=== PATIENT | male | born 2000 | race Caucasian/White ===

== ENCOUNTER 2021-07-11 19:19 | Emergency (ER) | payer MEDICAID ==
[~2021-07-11] VITALS: Ht 177.8 cm; Wt 39.8 kg
[2021-07-11 21:31] VITALS: BP 108/75
[2021-07-11 22:06] LABS: BASOPHILS # (AUTO) 0.1 X10'3 (0-0.2); BASOPHILS % (AUTO) 0.4 % (0-1); EOSINOPHILS # (AUTO) 0.1 X10'3 (0-0.9); EOSINOPHILS % (AUTO) 1.1 % (0-6); HEMATOCRIT 33.2 % (42.0-52.0); HEMOGLOBIN 10.6 g/dl (14.0-17.9); LYMPHOCYTES # (AUTO) 0.8 X10'3 (1.1-4.8); LYMPHOCYTES % (AUTO) 6.1 % (21-51); MEAN CORPUSCULAR HEMOGLOBIN 23.9 PG (27.0-31.0); MEAN CORPUSCULAR HGB CONC 31.8 g/dL (33.0-36.5); MEAN CORPUSCULAR VOLUME 75.3 FL (78-98); MEAN PLATELET VOLUME 8.2 FL (7.4-10.4); MONOCYTES # (AUTO) 0.6 X10'3 (0-0.9); NEUTROPHILS % (AUTO) 87.4 % (42-75); PLATELET COUNT 588 X10'3 (140-440); RED BLOOD COUNT 4.41 X10'6 (4.70-6.10); RED CELL DISTRIBUTION WIDTH 15.4 % (11.5-14.5); WHITE BLOOD COUNT 12.6 X10'3 (4.5-11.0)
[2021-07-11 22:21] LABS: ALANINE AMINOTRANSFERASE 31 U/L (12-78); ALBUMIN 3.4 G/DL (3.4-5.0); ALBUMIN/GLOBULIN RATIO 0.7 (1.1-1.5); ALKALINE PHOSPHATASE 123 IU/L (46-116); ANION GAP 10 (8-16); ASPARTATE AMINO TRANSFERASE 20 U/L (10-37); BILIRUBIN,TOTAL 0.4 MG/DL (0.1-1.0); BLOOD UREA NITROGEN 8 MG/DL (7-18); BUN/CREATININE RATIO 8.9 (5.4-32.0); CALCIUM 9.4 MG/DL (8.5-10.1); CHLORIDE 102 MMOL/L (99-107); GLUCOSE 86 MG/DL (70-104); POTASSIUM 3.8 MMOL/L (3.5-5.1); SODIUM 139 MMOL/L (135-145); TOTAL CARBON DIOXIDE 26.8 MMOL/L (24-32); TOTAL PROTEIN 8.4 G/DL (6.4-8.2); eGFR > 90 ML/MIN
== END 2021-07-11 23:51 | disposition home or self-care (01) ==
LOC: ER 19:22
DX: D64.9 Anemia, unspecified (principal); Z20.822 Contact with and (suspected) exposure to COVID-19; R91.8 Other nonspecific abnormal finding of lung field; R06.02 Shortness of breath; R05 Cough; R11.10 Vomiting, unspecified; Z79.899 Other long term (current) drug therapy
CPT/HCPCS: 36415; 71045; 71250; 80053; 85025; 87635; 93005; 99285; C9803

== ENCOUNTER 2022-04-09 06:13 | Day surgery (SDC) | payer MEDICAID ==
[~2022-04-09] VITALS: Ht 177.8 cm; Wt 40.4 kg
[2022-04-09 06:20] VITALS: BP 105/68
[2022-04-09] MEDS ORDERED: LIDOcaine Viscous 15ml cup ONE (06:24)
[2022-04-09] MEDS ORDERED: diphenhydrAMINE 50 mg/ml inj ONE (06:24)
[2022-04-09] MEDS ORDERED: MIDAZolam 1 MG/ML 5ML VIAL ONE (06:24)
[2022-04-09] MEDS ORDERED: fentaNYL/PF 50MCG/1 ML 2ML syringe ONE (06:24)
[2022-04-09] MEDS ORDERED: DULO60CA65 PO (07:10)
[2022-04-09] MEDS ORDERED: FAMO20TA8 PO (07:11)
[2022-04-09] MEDS ORDERED: FERR-39 PO (07:12)
[2022-04-09] MEDS ORDERED: GUAI5SYR5 (07:13)
[2022-04-09] MEDS ORDERED: HEPA100D36 SQ (07:16)
[2022-04-09] MEDS ORDERED: ISON300T20 PO (07:17)
[2022-04-09] MEDS ORDERED: MEGE40TA5 PO (07:18)
[2022-04-09] MEDS ORDERED: METO50TA16 (07:19)
[2022-04-09] MEDS ORDERED: MULT-1085 PO (07:20)
[2022-04-09] MEDS ORDERED: MOME13HF INH (07:20)
[2022-04-09] MEDS ORDERED: PYRI-3 PO (07:21)
[2022-04-09] MEDS ORDERED: RIFA150C7 (07:22)
[2022-04-09] MEDS ORDERED: SERT-433 PO (07:26)
[2022-04-09] MEDS ORDERED: SODI100035 PO (07:27)
[2022-04-09] MEDS ORDERED: ACET-1074 PO (07:28)
[2022-04-09] MEDS ORDERED: ALBU0.63 INH (07:30)
[2022-04-09] MEDS ORDERED: GUAI120L55 PO (07:32)
[2022-04-09] MEDS ORDERED: BENZ1LOZ74 PO (07:33)
[2022-04-09] MEDS ORDERED: DOCU1POW (07:35)
[2022-04-09] MEDS ORDERED: LORA-269 PO (07:36)
[2022-04-09] MEDS ORDERED: ONDA4TAB12 PO (07:37)
[2022-04-09] MEDS ORDERED: POLY17PO59 PO (07:38)
[2022-04-09] MEDS ORDERED: ZOLP5TAB2 PO (07:39)
[2022-04-09] MEDS ORDERED: SIME80TA15 PO (07:39)
[2022-04-09 08:20] VITALS: BP 112/81
[2022-04-09 08:30] VITALS: BP 117/77
[2022-04-09 08:40] VITALS: BP 105/83
[2022-04-09 08:50] VITALS: BP 124/47
== END 2022-04-09 09:15 ==
LOC: GI LAB 06:13
PROVIDERS: ATTEND Internal Medicine Gastroenterology
DX: R13.10 Dysphagia, unspecified (principal); J45.909 Unspecified asthma, uncomplicated; Z86.11 Personal history of tuberculosis; Z79.899 Other long term (current) drug therapy
CPT/HCPCS: 43246; 99152; 99153; B4087; J1200; J2250; J3010; J7030; Z7512; A4620

== ENCOUNTER 2023-06-28 02:42 | Emergency (ER) | payer MEDICAID ==
[~2023-06-28] VITALS: Ht 177.8 cm; Wt 47.7 kg
[~2023-06-28 02:42] MED LIST: ACET-1074 PO; ALBU0.63 INH; BENZ1LOZ74 PO; DOCU1POW; DULO60CA65 PO; FAMO20TA8 PO; FERR-39 PO; GUAI120L55 PO; GUAI5SYR5; HEPA100D36 SQ; ISON300T20 PO; LORA-269 PO; MEGE40TA5 PO; METO50TA16; MOME13HF11 INH; MULT-1085 PO; ONDA4TAB12 PO; POLY17PO59 PO; PYRI-3 PO; RIFA150C7; SERT-433 PO; SIME80TA15 PO; SODI100035 PO; ZOLP5TAB2 PO
[2023-06-28 02:56] VITALS: BP 120/93; PULSE 77; RESP 18; TEMP 98.2; O2SAT 98
[2023-06-28 03:25] LABS: BILIRUBIN,URINE NEGATIVE (Neg); CLARITY,URINE CLEAR (Clear); GLUCOSE, URINE NEGATIVE (Neg); KETONES,URINE NEGATIVE (Neg); LEUKOCYTE ESTERASE ,URINE NEGATIVE (Neg); NITRITES, URINE NEGATIVE (Neg); OCCULT BLOOD,URINE TRACE-INTACT (Neg); PROTEIN,URINE NEGATIVE (Neg); UROBILINOGEN,URINE 0.2 E.U/dL (0.2-1.0)
[2023-06-28 03:51] LABS: UA COLLECTION TYPE VOIDED
[2023-06-28 03:54] LABS: COLOR,URINE STRAW (Yellow)
[2023-06-28 03:55] LABS: SQUAMOUS EPITHELIAL CELL,UR NONE SEEN /LPF (FEW)
[2023-06-28 03:56] LABS: BACTERIA,URINE FEW /HPF (Neg); RBC,URINE NONE SEEN /HPF (0-2); WBC,URINE NONE SEEN /HPF (0-4)
[2023-06-28] MEDS ORDERED: azithromycin 250mg tablet PO ONE (05:05)
[2023-06-28] MEDS ORDERED: CefTRIAXone 500MG IM Kit w/LIDOcaine IM ONE (05:05)
[2023-06-28] MEDS ORDERED: CLOT30CR24 TOP (05:07)
[2023-06-30 10:02] LABS: CHLAMYDIA TRACHOMATIS, NAA Negative (Negative)
== END 2023-06-28 05:31 | disposition home or self-care (01) ==
LOC: ER 02:43
DX: N47.2 Paraphimosis (principal); Z79.899 Other long term (current) drug therapy; Z79.1 Long term (current) use of non-steroidal anti-inflammatories (NSAID)
CPT/HCPCS: 36415; 81001; 87491; 87591; 96372; 99283; J0696

== ENCOUNTER 2025-03-09 22:04 | Inpatient (IN) | payer MEDICAID ==
[~2025-03-09] VITALS: Ht 167.6 cm; Wt 50.9 kg
[~2025-03-09 22:04] MED LIST changes: +CLOT30CR24 TOP; -ISON300T20 PO; +ONDA-243 PO; -ONDA4TAB12 PO; -RIFA150C7; +[UNRECOGNIZED DRUG - CODE]; +[UNRECOGNIZED DRUG - CODE] PO
--- NOTE | 2025-03-09 22:19 | ELECTROCARDIOGRAPH REPORT ---
[facility] Test Date: 2025-03-09 Test Time: 22:15:01 Pat Name: YNOI GUTIERREZ Department: EMERGENCY ROOM Room: Gender: M Deep Tissue Massage Therapist: : 2000 Requested By: SAL SALGUERO Order Number: [id number] Reading MD: Measurements Intervals [place] Rate: 94 P: 66 FL: 136 QRS: 89 QRSD: 96 T: 8 QT: 315 QTc: 394 Interpretive Statements Sinus rhythm Biatrial enlargement Probable right ventricular hypertrophy ST elevation, consider lateral injury Artifact in lead(s) V5,V6 and baseline wander in lead(s) V5,V6 Please click the below link to view image of tracing.
--- NOTE | 2025-03-09 22:47 | Physician Documentation ---
History of Present Illness ~ Chief Complaint: Shortness of Breath Stated Complaint: SOB Time Seen by MD: 22:39 HPI 24-year-old male history of tuberculosis presenting for shortness of breath and cough over the last several days Medication Reconciliation Allergies: Coded Allergies: No Known Allergies (Unverified , 03/09/25) Miscellaneous Medications Home Med List (No Home Medications), (Reported) Discontinued Medications Acetaminophen (Acetaminophen), 2 TAB PO Q4HR PRN for pain or fever, (Reported) Discontinued Reason: patient no longer taking Albuterol Sulfate (Albuterol Sulfate), 90 MCG INH Q4H, (Reported) Discontinued Reason: patient no longer taking Benzocaine/Menthol (Cepacol Sore Throat Lozenge), 1 TAB PO Q4H, (Reported) Discontinued Reason: patient no longer taking Clotrimazole (Clotrimazole), 1 APPLIC TOP Q12H Discontinued Reason: patient no longer taking Docusate Sodium (Docusate Sodium), 283 .SEE ORDER RECTALLY, (Reported) Discontinued Reason: patient no longer taking Duloxetine HCl (Duloxetine HCl), 1 CAP PO HS, (Reported) Discontinued Reason: patient no longer taking Famotidine (Famotidine), 1 TABLET PO DAILY, (Reported) Discontinued Reason: patient no longer taking Ferrous Sulfate (Ferrous Sulfate), 1 TAB PO DAILY, (Reported) Discontinued Reason: patient no longer taking Guaifenesin/Codeine Phosphate (Codeine-Guaifen 10-100 mg/5 ml), 20-200 ML PO Q6H PRN for cough and congestion, (Reported) Discontinued Reason: patient no longer taking Guaifenesin/Dextromethorphan (Guaifenesin Dm Syrup 5ML Cup), 5 ML .SEE ORDER Q6H, (Reported) Discontinued Reason: patient no longer taking Heparin Sodium,Porcine/Pf (Heparin 1,000 Unit/10 (100/ml)), 5,000 UNIT SQ Q8H, (Reported) Discontinued Reason: patient no longer taking Isoniazid (ISONIAZID tablet), 225 MG PO DAILY, (Reported) Discontinued Reason: patient no longer taking Lorazepam (Ativan), 0.5 MG PO Q4H, (Reported) Discontinued Reason: patient no longer taking Megestrol Acetate (Megace), 800 MG PO DAILY, (Reported) Discontinued Reason: patient no longer taking Metoprolol Tartrate (Metoprolol Tartrate), BID, (Reported) Discontinued Reason: patient no longer taking Mometasone/Formoterol (Dulera 200 Mcg/5 Mcg Inhaler), 2 PUFFS INH Q12H, (Reported) Discontinued Reason: patient no longer taking Multivitamin (Multi Vitamin Daily), 1 TAB PO DAILY, (Reported) Discontinued Reason: patient no longer taking ONDANSETRON ODT 4mg tablet (Ondansetron Odt), 1 TABLET PO Q6H, (Reported) Discontinued Reason: patient no longer taking Polyethylene Glycol 3350 (Polyethylene Glycol 3350), 1 PKT PO Q8, (Reported) Discontinued Reason: patient no longer taking Pyridoxine Hcl (Vitamin B-6), 25 MG PO DAILY, (Reported) Discontinued Reason: patient no longer taking Rifampin (RIFAMPIN capsule), 450 MG .SEE ORDER DAILY, (Reported) Discontinued Reason: patient no longer taking Sertraline HCl (Sertraline HCl), 1 TAB PO DAILY, (Reported) Discontinued Reason: patient no longer taking Simethicone (Simethicone), 1 TAB PO Q6, (Reported) Discontinued Reason: patient no longer taking Sodium Chloride (Sodium Chloride), 1 TAB PO Q12H, (Reported) Discontinued Reason: patient no longer taking Zolpidem Tartrate (Ambien), 1 TAB PO HSPRN, (Reported) Discontinued Reason: patient no longer taking Past Medical History Past Medical History: No Pertinent History Past Surgical History: no surgical history Alcohol Use: None Drug Use: none Review of Systems Constitutional: Reports: diaphoresis, fever Cardiovascular: Denies: chest pain Physical Exam Vital Signs: Temperature: 101.0, Source: Temporal, Heart Rate: 99, Respiratory Rate: 30, BP: 122/74, Pulse Oximetry: 97, Weight: 50.900 Physical Exam Ill-appearing cachectic diaphoretic Respiratory moderate distress right upper lobe crackles Lower extremity no edema Neuro awake alert oriented Sepsis Screening Reassessment Date: March 09, 2025 Reassessment Time: 23:55 Vitals Signs Review Improved Cardiology Exam: normal peripheral pulses, regular rate, rhythm Extremities: normal inspection, normal capillary refill Skin Color: Normal Progress Progress Note Discussed case with Dr. Ball infectious Disease who knows this patient well and feels he was appropriately treated for tuberculosis. He thinks this is likely a bacterial pneumonia and recommends treatment for bacterial pneumonia and no need for TB precautions he will be available for further consultation Results/Orders Results/Orders Orders - SAL SALGUERO MD Chest,Single View (03/09/25 ) Culture Blood (03/09/25 23:54) Covid19 Binax Poc Result Entry (03/10/25 00:54) Cult Sputum + Gram Stain (03/10/25 00:54) Afb Culture & Smear (03/10/25 01:05) Page Hospitalist (03/10/25 01:28) Fill Out Med Reconciliation (03/10/25 01:28) Completed Orders - SAL SALGUERO MD Electrocardiogram (03/09/25 ) Chest,Single View (03/09/25 ) Cbc/Diff (03/09/25 23:53) BMP (03/09/25 23:53) Hs Troponin I W Calculations (03/09/25 23:53) LA (03/09/25 23:54) Piperacillin/Tazo 4.5gm/100ml (Zosyn 4.5 (03/10/25 08:00) Vancomycin/Ns 1 Gm Add-Lomira (Vancomyc (03/10/25 01:25) Normal Saline 1000ml (Sodium Chloride 10 (03/10/25 01:25) Ringers Solution, Lacted (Lactated Ringe (03/10/25 01:30) Piperacillin/Tazo 4.5gm/100ml (Zosyn 4.5 (03/10/25 01:39) Piperacillin/Tazo 4.5gm/100ml (Zosyn 4.5 (03/10/25 02:01) Acetaminophen 325mg Tablet (Tylenol Tabl (03/10/25 02:25) C-Reactive Protein (03/09/25 22:35) Ferritin (03/09/25 22:35) Hgb A1c (03/09/25 22:35) Vital Signs 03/09/25 03/09/25 03/09/25 03/09/25 22:05 22:07 22:20 22:30 Temp 101.0 101.3 Pulse 99 32 43 Resp 30 19 26 B/P (MAP) 122/74 75/45 (55) 110/53 (72) Pulse Ox 98 97 92 94 O2 Delivery Room Air* O2 Flow Rate 0 0 FiO2 21 03/09/25 03/09/25 03/10/25 03/10/25 23:00 23:30 00:00 00:30 Pulse 106 110 130 100 Resp B/P (MAP) 97/62 (74) 116/70 (85) 135/78 (97) 122/79 (93) Pulse Ox 97 97 94 96 O2 Flow Rate 2.0 2.0 2.0 2.0 03/10/25 03/10/25 03/10/25 03/10/25 01:00 01:30 02:00 02:30 Temp 101.2 Pulse 118 112 109 108 Resp B/P (MAP) 116/73 (87) 135/80 (98) 107/73 (84) 116/71 (86) Pulse Ox 96 97 100 100 O2 Flow Rate 2.0 2.0 2.0 2.0 03/10/25 03/10/25 03/10/25 03/10/25 03:00 03:30 04:10 06:00 Temp 98.2 97.9 Pulse 98 90 82 70 Resp 23 22 B/P (MAP) 125/69 (87) 114/61 (78) 112/68 (83) 101/61 (74) Pulse Ox 99 99 99 98 O2 Flow Rate 2.0 2.0 2.0 2.0 03/10/25 03/10/25 03/10/25 03/10/25 07:00 07:30 08:00 08:30 Pulse 73 62 79 78 Resp 24 17 B/P (MAP) 98/66 (77) 99/65 (76) 107/77 (87) 89/50 (63) Pulse Ox 97 94 97 96 O2 Flow Rate 2.0 2.0 2.0 2.0 03/10/25 03/10/25 03/10/25 09:00 09:02 09:11 Temp 98.5 Pulse 72 67 70 Resp 18 20 19 B/P (MAP) 89/55 (66) Pulse Ox 95 98 O2 Delivery Room Air* Room Air O2 Flow Rate 2.0 0 0.0 FiO2 21 Laboratory Tests Test 03/09/25 22:35 03/10/25 01:14 03/10/25 01:25 03/10/25 05:30 White Blood Count 10.4 Red Blood Count 5.26 Hemoglobin 13.6 L Hematocrit 41.3 L Mean Corpuscular Volume 78.5 Mean Corpuscular Hemoglobin 25.9 L Mean Corpuscular Hemoglobin Concent 32.9 L Red Cell Distribution Width 13.8 Platelet Count 326 Mean Platelet Volume 9.5 Neutrophils (%) (Auto) 78.5 H Lymphocytes (%) (Auto) 8.8 L Monocytes (%) (Auto) 7.2 Eosinophils (%) (Auto) 5.5 Basophils (%) (Auto) 0 Neutrophils # (Auto) 8.2 H Lymphocytes # (Auto) 0.9 L Monocytes # (Auto) 0.7 Eosinophils # (Auto) 0.6 Basophils # (Auto) 0.0 CBC Comment Sodium Level 140 Potassium Level 3.6 Chloride Level 103 Carbon Dioxide Level 27.0 Anion Gap 10 Blood Urea Nitrogen 7 Creatinine 0.90 Estimated GFR/1.73 m2 > 90 BUN/Creatinine Ratio 7.8 L Glucose Level 88 Hemoglobin A1c 4.9 Calcium Level 9.3 Iron Level 19 L Total Iron Binding Capacity 242 L Percent Iron Saturation 8 L Ferritin 108 Troponin I High Sensitivity 5 C-Reactive Protein 2.27 H Albumin 4.1 Procalcitonin < 0.05 Chemistry Comments SARS-CoV-2 Antigen (Rapid) Negative Lactic Acid Level 1.7 Urine Specimen Description Urinal Urine Color Straw Urine Clarity Clear Urine pH 6.0 Urine Specific [place] 1.010 Urine Protein Negative Urine Glucose (UA) Negative Urine Ketones Trace H Urine Occult Blood Negative Urine Nitrite Negative Urine Bilirubin Negative Urine Urobilinogen 0.2 Urine Leukocyte Esterase Negative Urine Culture Indicated Not ind Volume Urine Centrifuged 10 ml Urine Comment Blood Gas Specimen Type Arterial Blood Gas Puncture Site Rr O2 Saturation 99.0 H Arterial Blood pH (Temp corrected) 7.429 Arterial Blood pCO2 (Temp correct) 37.6 Arterial Blood pO2 (Temp corrected) 125.4 H Arterial Blood PO2/FiO2 Ratio 4.67 Arterial Blood HCO3 24.6 Arterial Blood Base Excess 0.1 Arterial Blood Oxyhemoglobin 98.3 H Arterial Blood Carboxyhemoglobin 0.7 Arterial Blood Methemoglobin 0.0 Arterial Blood Deoxyhemoglobin 1.0 Erwin Test Modified Blood Gas Hemoglobin 12.6 L Blood Gas Temperature 36.1 Blood Gas Liter Flow 2 FiO2 28.0 Blood Gas Critical Value Called To Estuardo duran Test 03/10/25 07:12 Erythrocyte Sedimentation Rate 14 Potassium Level 3.8 Magnesium Level 1.9 Microbiology Date/Time Source Procedure Growth Status 03/10/25 01:25 Blood Arm Right Blood Culture - Preliminary NO GROWTH AFTER 1 DAY Resulted Medical Decision Making Additional info obtained from: old records Additional Infomation Pneumonia, tuberculosis, COPD pulmonary embolism Departure Disposition: ADMITTED INPATIENT Admitted to Inpatient Unit: to hospitalist Impression: Primary Impression: Respiratory distress Additional Impressions: Pneumonia Qualified Codes: J18.9 - Pneumonia, unspecified organism Septic shock Referrals: NO PRIMARY CARE PROVIDER (PCP) Critical Care Note Total Time (mins): 35 Critical Care Note The very real possibility of a deterioration of this patient's condition required the highest level of my preparedness for sudden, emergent intervention. I provided critical care services, which included medication orders, frequent reevaluations of the patient's condition and response to treatment, ordering and reviewing test results, and discussing the case with various consultants. Excludes time spent performing separately billable procedures. The critical care time associated with the care of the patient was 35 minutes in the management of severe sepsis/septic shock requiring resuscitation Signature Scribe Signature: tip Attestation: SAL De La O MD March 09, 2025 22:47
[2025-03-09] MEDS ORDERED: NO HOME MEDS (23:59)
[2025-03-10] VITALS (8 sets, daily range): BP systolic 94–102; BP diastolic 53–60; PULSE 67–81; RESP 14–20; TEMP 97.7–98.9; O2SAT 95–99
[2025-03-10 00:02] LABS: BASOPHILS % (AUTO) 0 % (0-1); EOSINOPHILS # (AUTO) 0.6 X10'3 (0-0.9); EOSINOPHILS % (AUTO) 5.5 % (0-6); HEMATOCRIT 41.3 % (42.0-52.0); HEMOGLOBIN 13.6 g/dl (14.0-17.9); LYMPHOCYTES # (AUTO) 0.9 X10'3 (1.1-4.8); LYMPHOCYTES % (AUTO) 8.8 % (21-51); MEAN CORPUSCULAR HEMOGLOBIN 25.9 PG (27.0-31.0); MEAN CORPUSCULAR HGB CONC 32.9 g/dL (33.0-36.5); MEAN CORPUSCULAR VOLUME 78.5 FL (78-98); MEAN PLATELET VOLUME 9.5 FL (7.4-10.4); MONOCYTES # (AUTO) 0.7 X10'3 (0-0.9); MONOCYTES % (AUTO) 7.2 % (2-12); NEUTROPHILS # (AUTO) 8.2 X10'3 (1.8-7.7); NEUTROPHILS % (AUTO) 78.5 % (42-75); PLATELET COUNT 326 X10'3 (140-440); RED BLOOD COUNT 5.26 X10'6 (4.70-6.10); RED CELL DISTRIBUTION WIDTH 13.8 % (11.5-14.5); WHITE BLOOD COUNT 10.4 X10'3 (4.5-11.0)
[2025-03-10 00:05] LABS: ALBUMIN 4.1 G/DL (3.4-5.0); ANION GAP 10 (8-16); BLOOD UREA NITROGEN 7 MG/DL (7-18); BUN/CREATININE RATIO 7.8 (10.0-20.0); CALCIUM 9.3 MG/DL (8.5-10.1); CHLORIDE 103 MMOL/L (99-107); GLUCOSE 88 MG/DL (70-104); POTASSIUM 3.6 MMOL/L (3.5-5.1); SODIUM 140 MMOL/L (135-145); eCRCL 90 ML/MIN; eGFR > 90 ML/MIN
[2025-03-10] MEDS: piperacillin/tazo 4.5gm/100ml 100 ML IV ONE ×2 (01:38→02:42)
[2025-03-10] MEDS: piperacillin/tazo 4.5gm/100ml 100 ML IV SCH (01:39)
--- NOTE | 2025-03-10 01:48 | RADIOLOGY REPORT ---
Clinical History sob Comparison None Technique: A single AP/PA chest radiograph was provided for review. Without Contrast MATT YONI, [id number] FINDINGS:/IMPRESSION: Normal cardiac silhouette. Extensive parenchymal hazy densities in the upper lung zones bilaterally, consistent with multifocal infiltrates. Confluent area of opacification in the right upper lobe with small lucencies may represent an abscess . This report was electronically signed by Moustapha Huerta MD on 03/10/2025 1:45:01 AM.
[2025-03-10] MEDS: vancomycin/NS 1 GM ADD-VANTAGE 250 ML IV ONE (01:49)
[2025-03-10] MEDS: normal saline 1000ml 1,000 ML IV ONE (01:49)
[2025-03-10] MEDS: ringers solution, lacted 1,000 ML IV ONE (01:49)
[2025-03-10] MEDS: acetaminophen 325mg tablet PO ONE (02:42)
[2025-03-10] MEDS ORDERED: mag hydrox/Alum hydrox/simeth 30ml oral suspension PO PRN (04:50)
[2025-03-10] MEDS ORDERED: magnesium sulf-water 4G/100mL 100 ML IV PRN (04:50)
[2025-03-10] MEDS ORDERED: potassium Cl 20 mEq SR tablet PO PRN ×2 (04:50)
[2025-03-10] MEDS ORDERED: magnesium hydroxide 30ml (MOM) UD suspension PO PRN (04:50)
[2025-03-10] MEDS ORDERED: magnesium Cl slow-release 64mg tablet PO PRN (04:50)
[2025-03-10] MEDS ORDERED: ondansetron/PF 4mg/2ml inj IV PRN (04:50)
[2025-03-10] MEDS ORDERED: acetaminophen 325mg tablet PO PRN (04:50)
[2025-03-10] MEDS ORDERED: magnesium sulf-water 2g/50mL 50 ML IV PRN (04:50)
[2025-03-10] MEDS ORDERED: potassium Cl 40MEQ/1/2NS 520ml 520 ML IV PRN (04:50)
--- NOTE | 2025-03-10 05:00 | HISTORY AND PHYSICAL-Residence ---
History & Physical Providers to CC Resident Creating Document: ALEXSANDER MELO, RES ~ History of Present Illness Primary Medical Doctor: none Reason for Admit\Complaint: Cough and shortness of breath. History of Present Illness 24-year-old male patient with past medical history of tuberculosis two years ago came to the hospital with chief complaint of worsening cough and shortness of breaths. The patient reports that approximately 24 hours ago his cough has been getting worse, he describes his cough as a dry cough. Associated to his cough he endorses pleuritic chest pain with the episodes of his cough. The patient also mentioned some nausea and two episodes of vomit food type secondary to his cough spell. The patient also endorses episodes of sweating, subjective fever, reason for which the patient decided to come to the hospital. The patient currently denies palpitations, abdominal pain, intestinal or urinary symptoms. Allergies: Coded Allergies: No Known Allergies (Unverified , 03/09/25) Home Medications Home Medications Active Reported No Home Medications (Home Med List) Each Past Medical History Past Medical History Tuberculosis two years ago, he completed his treatment. Past Surgical History Surgical History Comment S/P feeding tube when he had tuberculosis. Past Social History Smoking: Non-Smoker Alcohol Use: None Drug Use: None Lives with: Other (Roommates) Lives In: Other Occupation: unemployed ROS All Other Systems: Reviewed and Negative Exam Vitals: Vital Signs Date Time Temp Pulse Resp B/P (MAP) Pulse Ox O2 Delivery O2 Flow Rate FiO2 03/10/25 04:10 98.2 82 22 112/68 (83) 99 2.0 03/09/25 22:07 Room Air* 21 Physical exam: General: Diaphoretic, Cachectic, well alert, well oriented, not confused, mildly agitated, well cooperated during the physical. HEENT: Conjunctive are pink, sclerae clear, no icterus, pupil is equal in both sides, reactive to light, no ear discharge, no pharyngeal erythema or an edema. Neck: Supple, no JVD, no lymphadenopathy and thyromegaly. Chest: Equal air entry on both lungs, presence of crackles in the right upper lung. Cardiovascular: S1-S2 regular sinus rhythm and, regular rate, no gallops, no rubs, no murmurs Abdomen: No visible peristalsis, Bowel sounds present on auscultation, soft, nontender, no guarding, no rigidity, presence of scar from previous PEG tube in the level of the left side of his abdomen. Extremities: No obvious deformities, no pitting edema bilaterally, capillary refill intact, peripheral pulsations are intact on both sides Central Nervous System: No focal neurological deficits, no motor or sensory weakness in all 4 extremities, could move all 4 extremities, 2+ deep tendon reflexes, negative Babinski. Musculoskeletal: No joint swelling, deformities, inflammations, and no scoliosis and back tenderness Skin: Warm and dry. Diagnostic Data Last Recorded Lab Results: 03/09/25 2235 03/10/25 0712 Advance Care Planning Advanced Care plannin - 30 Minutes (I spent a total of 17 minutes on reviewing various resuscitative measures/ACP with the patient at the time of admission. The patient has decided on a full code status.) Additional Plan Assessment and plan: 24-year-old male patient came to the hospital with chief complaint of exacerbating cough and shortness of breath. Shortness of breath: Sepsis likely secondary to right upper lobe pneumonia: Sepsis criteria: Temperature 101.2, pulse 112, respiratory rate 28, presence of source of infection: The patient came to the hospital with chief complaint of cough and shortness of breaths. The patient completed treatment for tuberculosis two years ago. COVID-19: Negative. Chest x-ray: Normal cardiac silhouette. Extensive parenchymal hazy densities in the upper lung zones bilaterally, consistent with multifocal infiltrates. Confluent area of opacification in the right upper lobe with small lucencies may represent an abscess. Dr. Ball was consulted who knows this patient well and feels that the patient was appropriately treated for tuberculosis. He thinks like disease a bacterial pneumonia recommends treated for bacterial pneumonia no need for TB precautions. Follow-up blood cultures and MRSA. Follow-up CT scan of the chest. Follow-up sputum culture. Vancomycin pharmacy to dose. Zosyn IV t.i.d.. Culturelle [id number] mmu b.i.d. Duo nebs q.2h p.r.n. DuoNeb q.4h scheduled. NS at 50 mL/hour. Normocytic normochromic anemia: Hemoglobin 13.6, hematocrit 31.3, MCV 78.5. Follow-up iron studies. Code status: Full code DVT prophylaxis: SCDs Analgesia/sedation: None Line/tube: PIV GI prophylaxis: Protonix Nutrition: Regular rate PT: Ordered Prognosis: Guarded Disposition: The patient will be admitted to PCU. Alexsander Wilcox Internal Medicine Resident [facility] Addendum I personally reviewed the chart, labs and imaging and reviewed the patient with the team. I agree with the assessment and plan as documented by the resident. Patient was seen through remote audio-visual assessment through HIPAA compliance setup. Date of Service: March 10, 2025 Billing Provider: KANE SILVERIO MD, FRANCO LUIS, [facility] March 10, 2025 05:00 KANE SILVERIO MD March 10, 2025 08:00
[2025-03-10] MEDS ORDERED: ipratropium/albuterol 3ml nebule NEB PRN (05:10)
[2025-03-10] MEDS: lactobacillus rhamnosus 10,000 MMU CELLS/CAPSULE PO SCH (05:26)
[2025-03-10] MEDS: normal saline 1000ml 1,000 ML IV SCH (05:27)
[2025-03-10 05:34] LABS: % IRON SATURATION 8 % (11-46); IRON 19 UG/DL (53-167); TOTAL IRON BINDING CAPACITY 242 UG/DL (259-388)
[2025-03-10 05:35] LABS: ABG BASE EXCESS 0.1 mmol/L (-2.0-3.0); ABG HCO3 24.6 mmol/L (21.0-28.0); ABG PCO2 (T) 37.6 mmHg (35.0-48.0); ABG PH (T) 7.429 (7.350-7.450); ABG PO2 (T) 125.4 mmHg (83.0-108.0); ALLEN'S TEST Modified; FCOHb 0.7 % (0.5-1.5); FLOW 2 L/min; FO2Hb 98.3 % (94.0-98.0); PATIENT TEMPERATURE 36.1; TOTAL HEMOGLOBIN 12.6 G/dl (13.5-17.5)
[2025-03-10 05:39] LABS: HEMOGLOBIN A1C 4.9 % (4.5-6.2)
[2025-03-10] MEDS: methylPREDNISolone sod succ 125mg/2ml vial IV ONE (05:40)
[2025-03-10 05:45] LABS: BILIRUBIN,URINE NEGATIVE (Neg); CLARITY,URINE CLEAR (Clear); COLOR,URINE STRAW (Yellow); GLUCOSE, URINE NEGATIVE (Neg); KETONES,URINE TRACE mg/dl (Neg); LEUKOCYTE ESTERASE ,URINE NEGATIVE (Neg); NITRITES, URINE NEGATIVE (Neg); OCCULT BLOOD,URINE NEGATIVE (Neg); PROTEIN,URINE NEGATIVE (Neg); UROBILINOGEN,URINE 0.2 E.U/dL (0.2-1.0)
[2025-03-10 05:48] LABS: C-REACTIVE PROTEIN 2.27 MG/DL (0.0-0.5); FERRITIN 108 NG/ML (26-388)
[2025-03-10 05:50] LABS: UA COLLECTION TYPE URINAL
--- NOTE | 2025-03-10 07:07 | RADIOLOGY REPORT ---
EXAM: CT Chest Without Intravenous Contrast CLINICAL INDICATION: rulobe pneumonia TECHNIQUE: Axial computed tomography images of the chest without intravenous contrast. This CT exam was performed using one or more of the following dose reduction techniques: automated exposure cont rol, adjustment of the mA and/or kV according to patient size, and/or use of iterative reconstruction technique. CONTRAST: COMPARISON: CT CHEST on DOS: 07/11/21 FINDINGS: ARTIFACTS: Motion artifact. LUNGS AND PLEURAL SPACES: Lung emphysema/COPD with scattered areas of consolidation, predominantly in the upper lobes could be multifocal pneumonia. Underlying nodule can not be excluded. Repeat CT i n 6 months is recommended. No significant effusion. HEART: Unremarkable. No cardiomegaly. No significant pericardial effusion. No significant coon ry artery calcifications. BONES/JOINTS: Unremarkable. No acute fracture. No dislocation. SOFT TISSUES: Unremarkable. VASCULATURE: Unremarkable. No thoracic aortic aneurysm. LYMPH NODES: Unremarkable. No enlarged lymph nodes. OTHER FINDINGS: . IMPRESSION: Lung emphysema/COPD with scattered areas of consolidation, predominantly in the upper lobes could be multifocal pneumonia. Underlying nodule can not be excluded. Repeat CT in 6 months is recommended.
[2025-03-10 07:37] LABS: MAGNESIUM 1.9 MG/DL (1.5-2.4); POTASSIUM 3.8 MMOL/L (3.5-5.1)
[2025-03-10] MEDS: docusate sod 100mg capsule PO SCH (07:56)
[2025-03-10] MEDS: K and/or MAG REPLACEMENT MC SCH (08:00)
[2025-03-10] MEDS: pantoprazole 40mg Tablet.DR PO SCH (08:00)
[2025-03-10] MEDS: ipratropium/albuterol 3ml nebule NEB SCH (09:02)
[2025-03-10] MEDS: piperacillin/tazo 3.375gm/50ml 50 ML IV SCH (11:44)
--- NOTE | 2025-03-10 11:48 | PROGRESS NOTE ---
Progress Note Dictate Providers to CC ~ Subjective Subjective: Estuardo is a 24-year-old male who is very well known to me from past treatment of pulmonary tuberculosis. He had extensive cavitary disease when I met him. He required a prolonged hospitalization at [facility] followed by a prolonged rehab at [facility]. He was appropriately treated for one year. He was last seen by me in December 2022 when therapy for TB ended. He was supposed to continue another six months of rifampin, ethambutol and azithromycin for MAC. He states that he has been stable over the past two years. He has had trouble maintaining weight, and he hangs right above 100 lbs. He states that he developed a cough with some chest discomfort about a day or two prior to presenting to the hospital. He denies any prolonged symptoms. Objective Objective: Pleasant thin young male who actually looks stable Lungs are dominantly clear to auscultation bilaterally with some bronchial breath sounds at right upper lung field Heart regular rate and rhythm Abdomen soft and nontender Extremities no edema Lab Results: 03/09/25 2235 03/10/25 0712 Radiology comments: CT reviewed. He does have extensive changes bilaterally with scarring, cavitation and bronchiectasis. He does have some consolidative changes of the right upper lobe. Problem\Assessment\Plan Additional Plan 1. 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 Pulmonary tuberculosis with severe cavitary disease that was treated with 12 months of therapy that completed December 2022 3. Pulmonary MAC of unclear significance that was treated with at least 12 months of therapy 4. Possible bacterial infection with involvement of right upper lobe 5. Malnutrition - this was a significant problem when he was being treated for tuberculosis, and he appears to be holding steady Check sputum culture Sputum for AFB is reasonable to look for nontuberculous mycobacteria (I am not worried about TB) He does not need isolation Agree with vancomycin and Zosyn for now Oral intake encouraged LUIS E HUITRON MD March 10, 2025 11:48
[2025-03-10] MEDS: vancomycin/NS 1 GM ADD-VANTAGE 250 ML IV SCH (15:22)
[2025-03-10] MEDS ORDERED: methylPREDNISolone sod succ 125mg/2ml vial IV SCH (20:00)
[2025-03-11] VITALS (14 sets, daily range): BP systolic 98–110; BP diastolic 56–65; PULSE 60–85; RESP 16–20; TEMP 97.6–98.7; O2SAT 95–99
[2025-03-11 05:59] LABS: BASOPHILS % (AUTO) 0.5 % (0-1); EOSINOPHILS # (AUTO) 0.8 X10'3 (0-0.9); EOSINOPHILS % (AUTO) 11.4 % (0-6); HEMATOCRIT 35.6 % (42.0-52.0); HEMOGLOBIN 11.6 g/dl (14.0-17.9); LYMPHOCYTES % (AUTO) 13.5 % (21-51); MEAN CORPUSCULAR HEMOGLOBIN 25.7 PG (27.0-31.0); MEAN CORPUSCULAR HGB CONC 32.6 g/dL (33.0-36.5); MEAN CORPUSCULAR VOLUME 78.9 FL (78-98); MEAN PLATELET VOLUME 8.4 FL (7.4-10.4); MONOCYTES # (AUTO) 0.6 X10'3 (0-0.9); MONOCYTES % (AUTO) 8.7 % (2-12); NEUTROPHILS # (AUTO) 4.8 X10'3 (1.8-7.7); NEUTROPHILS % (AUTO) 65.9 % (42-75); PLATELET COUNT 249 X10'3 (140-440); RED BLOOD COUNT 4.51 X10'6 (4.70-6.10); WHITE BLOOD COUNT 7.2 X10'3 (4.5-11.0)
[2025-03-11 06:23] LABS: ALANINE AMINOTRANSFERASE 14 U/L (12-78); ALBUMIN 3.1 G/DL (3.4-5.0); ALBUMIN/GLOBULIN RATIO 0.9 (1.1-1.5); ALKALINE PHOSPHATASE 105 IU/L (46-116); ANION GAP 9 (8-16); ASPARTATE AMINO TRANSFERASE 12 U/L (10-37); BILIRUBIN,TOTAL 0.4 MG/DL (0.1-1.0); BLOOD UREA NITROGEN 7 MG/DL (7-18); BUN/CREATININE RATIO 8.6 (10.0-20.0); CALCIUM 8.2 MG/DL (8.5-10.1); CHLORIDE 108 MMOL/L (99-107); CHOL/HDL RATIO 2.9 (0.00-4.99); CHOLESTEROL 87 MG/DL (0-200); CREATININE 0.81 MG/DL (0.60-1.10); GLUCOSE 90 MG/DL (70-104); HDL CHOLESTEROL 30 MG/DL (35-60); LDL CHOLESTEROL 51 MG/DL (50-100); POTASSIUM 4.1 MMOL/L (3.5-5.1); SODIUM 144 MMOL/L (135-145); TOTAL CARBON DIOXIDE 26.7 MMOL/L (24-32); TOTAL PROTEIN 6.5 G/DL (6.4-8.2); TRIGLYCERIDES 26 MG/DL (20-135); eCRCL 100 ML/MIN; eGFR > 90 ML/MIN
--- NOTE | 2025-03-11 11:26 | PROGRESS NOTE- Residence ---
Progress Note - Resident Providers to CC Resident Creating Document: ALVIN VENEGAS CC: ONIEL MCRAE MD ~ Antibiotic Timeout Antibiotic Ordered?: Yes Subjective Patient was seen at bedside today. He reports be doing better, denies shortness of breath, cough, fevers, chills or any other subjective symptoms. Objective Vital Signs Date Time Temp Pulse Resp B/P (MAP) Pulse Ox O2 Delivery O2 Flow Rate FiO2 03/11/25 11:05 97.6 79 16 98/65 (76) 97 Room Air 03/11/25 07:40 0.0 03/11/25 07:34 21 Result Diagram: 03/11/2553003/11/25530 General: Cachectic, slightly anxious, awake, alert oriented to place, time, and person HEENT: Some pallor present, no icterus, moist mucous membranes Neck: No masses and tenderness Resp: Unlabored. Lungs clear to auscultation bilaterally. Heart: Regular Rate and rhythm, normal S1 and S2 without murmur, rub or gallop Abdomen: Soft and non tender no organomegaly, no guarding and rigidity, bowel sounds present Neuro: No weakness in the upper and lower limb muscles, power of the muscles 5/5 bilateral upper and lower muscles, knee reflex present bilaterally. Cranial nerves intact Extremities: No cyanosis,clubbing or edema Skin: Warm and Dry. No lesions Assessment Assessment 24-year-old male patient came to the hospital with chief complaint of exacerbating cough and shortness of breath. Admitted for evaluation and management of community acquired pneumonia in the setting of history of pulmonary MAC Plan Plan Shortness of breath, improved Sepsis 2/2 community acquired pneumonia, bacterial History of pulmonary MAC History of pulmonary tuberculosis The patient came to the hospital with chief complaint of cough and shortness of breaths The patient completed treatment for tuberculosis two years ago COVID-19: Negative. Chest x-ray: Normal cardiac silhouette. Extensive parenchymal hazy densities in the upper lung zones bilaterally, consistent with multifocal infiltrates. Confluent area of opacification in the right upper lobe with small lucencies may represent an abscess. Dr. Ball was consulted who knows this patient well and feels that the patient was appropriately treated for tuberculosis. He thinks like disease a bacterial pneumonia recommends treated for bacterial pneumonia no need for TB precautions. Blood cultures are negative Sputum culture shows Gram-positive cocci in pairs. Pending AFB CT chest shows Lung emphysema/COPD with scattered areas of consolidation, predominantly in the upper lobes could be multifocal pneumonia. Underlying nodule can not be excluded. Continue vancomycin and Zosyn, day 2 Culturelle [id number] mmu b.i.d. Duo nebs q.2h p.r.n. DuoNeb q.4h scheduled. IV fluids DC'd Continue recommendations per Dr. Ball Normocytic normochromic anemia likely secondary to anemia of chronic disease Hemoglobin is stable Iron studies consistent with anemia of chronic disease Continue monitoring H&H Moderate protein-calorie malnutrition BMI 18.1 Nutrition consult ordered Start Ensure TID Code status: Full code DVT prophylaxis: SCDs Analgesia/sedation: None Line/tube: PIV GI prophylaxis: Protonix Nutrition: Regular diet PT: Ordered Prognosis: Guarded Disposition: Continue care in surgical unit. Continue medical management. Continue recommendations per ID Alvin Kim MD Internal Medicine Resident PGY-1 Date of Service: March 11, 2025 Billing Provider: ONIEL MCRAE MD Common Visit Codes: [id number] INP/OBS CARE(HIGH) ALVIN VENEGAS March 11, 2025 11:26 ONIEL MCRAE MD March 22, 2025 14:41
[2025-03-11] MEDS: VANCOMYCIN LEVEL IV ONE (13:30)
[2025-03-11] MEDS: VANCOmycin 1250MG/NS 250ml Bag 250 ML IV SCH (15:58)
[2025-03-11] MEDS ORDERED: lactose-reduced food (Ensure Enlive) - 237ml bottle PO SCH (17:30)
[2025-03-11] MEDS: lactose-reduced food (Ensure Enlive) - 237ml bottle PO SCH (20:52)
[2025-03-12] VITALS (14 sets, daily range): BP systolic 84–119; BP diastolic 51–70; PULSE 59–103; RESP 16–18; TEMP 97.8–98.7; O2SAT 97–99
[2025-03-12 06:11] LABS: BASOPHILS % (AUTO) 0.5 % (0-1); EOSINOPHILS # (AUTO) 0.9 X10'3 (0-0.9); EOSINOPHILS % (AUTO) 12.7 % (0-6); HEMATOCRIT 37.8 % (42.0-52.0); HEMOGLOBIN 12.2 g/dl (14.0-17.9); LYMPHOCYTES % (AUTO) 14.4 % (21-51); MEAN CORPUSCULAR HEMOGLOBIN 25.7 PG (27.0-31.0); MEAN CORPUSCULAR HGB CONC 32.3 g/dL (33.0-36.5); MEAN CORPUSCULAR VOLUME 79.4 FL (78-98); MEAN PLATELET VOLUME 8.6 FL (7.4-10.4); MONOCYTES # (AUTO) 0.5 X10'3 (0-0.9); MONOCYTES % (AUTO) 7.8 % (2-12); NEUTROPHILS # (AUTO) 4.5 X10'3 (1.8-7.7); NEUTROPHILS % (AUTO) 64.6 % (42-75); PLATELET COUNT 304 X10'3 (140-440); RED BLOOD COUNT 4.76 X10'6 (4.70-6.10); RED CELL DISTRIBUTION WIDTH 14.2 % (11.5-14.5)
[2025-03-12 06:25] LABS: ALANINE AMINOTRANSFERASE 17 U/L (12-78); ALBUMIN 3.4 G/DL (3.4-5.0); ALBUMIN/GLOBULIN RATIO 0.9 (1.1-1.5); ALKALINE PHOSPHATASE 100 IU/L (46-116); ANION GAP 9 (8-16); ASPARTATE AMINO TRANSFERASE 15 U/L (10-37); BILIRUBIN,TOTAL 0.4 MG/DL (0.1-1.0); BLOOD UREA NITROGEN 8 MG/DL (7-18); BUN/CREATININE RATIO 10.3 (10.0-20.0); CALCIUM 8.6 MG/DL (8.5-10.1); CHLORIDE 105 MMOL/L (99-107); CREATININE 0.78 MG/DL (0.60-1.10); GLUCOSE 85 MG/DL (70-104); MAGNESIUM 2.2 MG/DL (1.5-2.4); POTASSIUM 3.6 MMOL/L (3.5-5.1); SODIUM 143 MMOL/L (135-145); TOTAL CARBON DIOXIDE 28.6 MMOL/L (24-32); TOTAL PROTEIN 7.2 G/DL (6.4-8.2); eCRCL 104 ML/MIN; eGFR > 90 ML/MIN
--- NOTE | 2025-03-12 10:43 | PROGRESS NOTE ---
Progress Note Dictate Providers to CC ~ Subjective Subjective: He states that he is feeling a little bit better. He still has a cough. He also states that he has been living with friends over the past year. Objective Objective: Pleasant thin young male who looks stable Lungs are dominantly clear to auscultation bilaterally with some bronchial breath sounds at right upper lung field Heart regular rate and rhythm Abdomen soft and nontender Extremities no edema Lab Results: 03/12/2552403/12/25524 Lab comments: Sputum culture pending Problem\Assessment\Plan Additional Plan 1. 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 Pulmonary tuberculosis with severe cavitary disease that was treated with 12 months of therapy that completed December 2022 3. Pulmonary MAC of unclear significance that was treated with at least 12 months of therapy 4. Possible bacterial infection with involvement of right upper lobe 5. Malnutrition - this was a significant problem when he was being treated for tuberculosis, and he appears to be holding steady Continue vancomycin and Zosyn for now Follow-up sputum culture Sputum for AFB is reasonable to look for nontuberculous mycobacteria (I am not worried about TB) He does not need isolation Oral intake encouraged LUIS E HUITRON MD March 12, 2025 10:43
--- NOTE | 2025-03-12 15:06 | PROGRESS NOTE- Residence ---
Progress Note - Resident Providers to CC Resident Creating Document: ALVIN VENEGAS CC: ONIEL MCRAE MD ~ Antibiotic Timeout Antibiotic Ordered?: Yes Subjective Patient was seen at bedside today. He states he is doing better, still has some cough but improving. He has been able to get up and use the bathroom. He denies fevers, chills, shortness ot breath or any other subjective symptoms Objective Vital Signs Date Time Temp Pulse Resp B/P (MAP) Pulse Ox O2 Delivery O2 Flow Rate FiO2 03/12/25 11:57 75 16 Room Air 0.0 03/12/25 11:50 97 21 03/12/25 07:30 103/61 (75) 03/12/25 06:30 97.8 Result Diagram: 03/12/2552403/12/25524 General: Cachectic, slightly anxious, awake, alert oriented to place, time, and person HEENT: Some pallor present, no icterus, moist mucous membranes Neck: No masses and tenderness Resp: Unlabored. Lungs clear to auscultation bilaterally. Heart: Regular Rate and rhythm, normal S1 and S2 without murmur, rub or gallop Abdomen: Soft and non tender no organomegaly, no guarding and rigidity, bowel sounds present Neuro: No weakness in the upper and lower limb muscles, power of the muscles 5/5 bilateral upper and lower muscles, knee reflex present bilaterally. Cranial nerves intact Extremities: Significant muscle wasting. No cyanosis,clubbing or edema Skin: Warm and Dry. No lesions Assessment Assessment 24-year-old male patient came to the hospital with chief complaint of exacerbating cough and shortness of breath. Admitted for evaluation and management of community acquired pneumonia in the setting of history of pulmonary Tuberculosis and MAC Plan Plan Shortness of breath, improved Sepsis 2/2 community acquired pneumonia, bacterial History of pulmonary MAC History of pulmonary tuberculosis The patient came to the hospital with chief complaint of cough and shortness of breaths The patient completed treatment for tuberculosis two years ago COVID-19: Negative. Chest x-ray: Normal cardiac silhouette. Extensive parenchymal hazy densities in the upper lung zones bilaterally, consistent with multifocal infiltrates. Confluent area of opacification in the right upper lobe with small lucencies may represent an abscess. Dr. Ball was consulted who knows this patient well and feels that the patient was appropriately treated for tuberculosis. He thinks like disease a bacterial pneumonia recommends treated for bacterial pneumonia no need for TB precautions. Blood cultures are negative Sputum culture shows Gram-positive cocci in pairs. Pending AFB CT chest shows Lung emphysema/COPD with scattered areas of consolidation, predominantly in the upper lobes could be multifocal pneumonia. Underlying nodule can not be excluded. Continue vancomycin and Zosyn, day 3 Culturelle [id number] mmu b.i.d. Duo nebs q.2h p.r.n. DuoNeb q.4h scheduled. IV fluids DC'd Continue recommendations per Dr. Ball Normocytic normochromic anemia likely secondary to anemia of chronic disease Hemoglobin is stable Iron studies consistent with anemia of chronic disease Continue monitoring H&H Moderate protein-calorie malnutrition BMI 18.1 Nutrition consult ordered Start Ensure TID Code status: Full code DVT prophylaxis: SCDs Analgesia/sedation: None Line/tube: PIV GI prophylaxis: Protonix Nutrition: Regular diet PT: Ordered Prognosis: Guarded Disposition: Continue care in surgical unit. Continue medical management. Continue recommendations per ID Alvin Kim MD Internal Medicine Resident PGY-1 Date of Service: March 12, 2025 Billing Provider: ONIEL MCRAE MD Common Visit Codes: [id number] INP/OBS CARE(HIGH) ALVIN VENEGAS March 12, 2025 15:06 ONIEL MCRAE MD March 22, 2025 14:44
[2025-03-13] VITALS (10 sets, daily range): BP systolic 105–140; BP diastolic 59–69; PULSE 66–83; RESP 13–22; TEMP 97.6–98.1; O2SAT 95–98
[2025-03-13] MEDS: VANCOMYCIN LEVEL IV ONE (02:44)
[2025-03-13 02:54] LABS: BASOPHILS % (AUTO) 0.7 % (0-1); EOSINOPHILS # (AUTO) 0.9 X10'3 (0-0.9); EOSINOPHILS % (AUTO) 12.6 % (0-6); HEMOGLOBIN 12.9 g/dl (14.0-17.9); LYMPHOCYTES % (AUTO) 15.2 % (21-51); MEAN CORPUSCULAR HEMOGLOBIN 25.8 PG (27.0-31.0); MEAN CORPUSCULAR VOLUME 78.4 FL (78-98); MEAN PLATELET VOLUME 8.4 FL (7.4-10.4); MONOCYTES # (AUTO) 0.5 X10'3 (0-0.9); MONOCYTES % (AUTO) 7.3 % (2-12); NEUTROPHILS # (AUTO) 4.4 X10'3 (1.8-7.7); NEUTROPHILS % (AUTO) 64.2 % (42-75); PLATELET COUNT 300 X10'3 (140-440); RED BLOOD COUNT 4.97 X10'6 (4.70-6.10); RED CELL DISTRIBUTION WIDTH 14.2 % (11.5-14.5); WHITE BLOOD COUNT 6.9 X10'3 (4.5-11.0)
[2025-03-13 03:07] LABS: ALANINE AMINOTRANSFERASE 27 U/L (12-78); ALBUMIN 3.7 G/DL (3.4-5.0); ALBUMIN/GLOBULIN RATIO 0.8 (1.1-1.5); ALKALINE PHOSPHATASE 111 IU/L (46-116); ANION GAP 8 (8-16); ASPARTATE AMINO TRANSFERASE 21 U/L (10-37); BILIRUBIN,TOTAL 0.2 MG/DL (0.1-1.0); BLOOD UREA NITROGEN 11 MG/DL (7-18); BUN/CREATININE RATIO 14.7 (10.0-20.0); CALCIUM 9.3 MG/DL (8.5-10.1); CHLORIDE 103 MMOL/L (99-107); CREATININE 0.75 MG/DL (0.60-1.10); GLUCOSE 87 MG/DL (70-104); MAGNESIUM 2.4 MG/DL (1.5-2.4); POTASSIUM 4.4 MMOL/L (3.5-5.1); SODIUM 140 MMOL/L (135-145); TOTAL CARBON DIOXIDE 28.8 MMOL/L (24-32); TOTAL PROTEIN 8.1 G/DL (6.4-8.2); VANCOMYCIN,TROUGH 10.6 ug/mL (10.0-20.0); eCRCL 108 ML/MIN; eGFR > 90 ML/MIN
[2025-03-13] MEDS: vancomycin/NS 1 GM ADD-VANTAGE 250 ML IV SCH (11:22)
--- NOTE | 2025-03-13 17:57 | PROGRESS NOTE- Residence ---
Progress Note - Resident Providers to CC Resident Creating Document: ZAYRA VENEGAS CC: ONIEL MCRAE MD ~ Antibiotic Timeout Antibiotic Ordered?: Yes Subjective Patient was seen at bedside today. No overnight events. Cough is improving Objective Vital Signs Date Time Temp Pulse Resp B/P (MAP) Pulse Ox O2 Delivery O2 Flow Rate FiO2 03/13/25 14:55 81 18 Room Air 0.0 03/13/25 14:48 97 21 03/13/25 10:00 98.1 120/69 (86) Result Diagram: 03/13/25 0226 03/13/25225 General: Cachectic, awake, alert oriented to place, time, and person HEENT: Some pallor present, no icterus, moist mucous membranes Neck: No masses and tenderness Resp: Unlabored. Lungs clear to auscultation bilaterally. Heart: Regular Rate and rhythm, normal S1 and S2 without murmur, rub or gallop Abdomen: Soft and non tender no organomegaly, no guarding and rigidity, bowel sounds present Neuro: No weakness in the upper and lower limb muscles, power of the muscles 5/5 bilateral upper and lower muscles, knee reflex present bilaterally. Cranial nerves intact Extremities: Significant muscle wasting. No cyanosis,clubbing or edema Skin: Warm and Dry. No lesions Assessment Assessment 24-year-old male patient came to the hospital with chief complaint of exacerbating cough and shortness of breath. Admitted for evaluation and management of community acquired pneumonia in the setting of history of pulmonary Tuberculosis and MAC Plan Plan Shortness of breath, improved Sepsis 2/2 community acquired pneumonia, bacterial History of pulmonary MAC History of pulmonary tuberculosis The patient came to the hospital with chief complaint of cough and shortness of breaths The patient completed treatment for tuberculosis two years ago COVID-19: Negative. Chest x-ray: Normal cardiac silhouette. Extensive parenchymal hazy densities in the upper lung zones bilaterally, consistent with multifocal infiltrates. Confluent area of opacification in the right upper lobe with small lucencies may represent an abscess. Dr. Ball was consulted who knows this patient well and feels that the patient was appropriately treated for tuberculosis. He thinks like disease a bacterial pneumonia recommends treated for bacterial pneumonia no need for TB precautions. Blood cultures are negative Sputum culture shows Gram-positive cocci in pairs. Pending AFB CT chest shows Lung emphysema/COPD with scattered areas of consolidation, predominantly in the upper lobes could be multifocal pneumonia. Underlying nodule can not be excluded. Continue vancomycin and Zosyn, day 4 Culturelle [id number] mmu b.i.d. DuoNeb q.4h prn Continue recommendations per Dr. Ball Normocytic normochromic anemia likely secondary to anemia of chronic disease Hemoglobin is stable Iron studies consistent with anemia of chronic disease Continue monitoring H&H Moderate protein-calorie malnutrition BMI 18.1 Nutrition following Code status: Full code DVT prophylaxis: SCDs Analgesia/sedation: None Line/tube: PIV GI prophylaxis: Protonix Nutrition: Regular diet PT: Ordered Prognosis: Guarded Disposition: Continue care in surgical unit. Continue medical management. Continue recommendations per AYESHA Kim MD Internal Medicine Resident PGY-1 Date of Service: March 13, 2025 Billing Provider: ONIEL MCRAE MD Common Visit Codes: [id number] INP/OBS CARE(HIGH) ZAYRA VENEGAS March 13, 2025 17:57 ONIEL MCRAE MD March 22, 2025 14:44
[2025-03-14] VITALS (7 sets, daily range): BP systolic 104–128; BP diastolic 61–79; PULSE 60–90; RESP 16–22; TEMP 97.8–97.9; O2SAT 95–96
[2025-03-14 04:26] LABS: BASOPHILS % (AUTO) 0.6 % (0-1); EOSINOPHILS # (AUTO) 1.1 X10'3 (0-0.9); EOSINOPHILS % (AUTO) 14.3 % (0-6); HEMATOCRIT 37.8 % (42.0-52.0); HEMOGLOBIN 12.5 g/dl (14.0-17.9); LYMPHOCYTES % (AUTO) 14.2 % (21-51); MEAN CORPUSCULAR HGB CONC 33.1 g/dL (33.0-36.5); MEAN CORPUSCULAR VOLUME 78.7 FL (78-98); MEAN PLATELET VOLUME 8.1 FL (7.4-10.4); MONOCYTES # (AUTO) 0.6 X10'3 (0-0.9); NEUTROPHILS # (AUTO) 4.6 X10'3 (1.8-7.7); NEUTROPHILS % (AUTO) 62.9 % (42-75); PLATELET COUNT 340 X10'3 (140-440); RED BLOOD COUNT 4.81 X10'6 (4.70-6.10); RED CELL DISTRIBUTION WIDTH 14.2 % (11.5-14.5); WHITE BLOOD COUNT 7.4 X10'3 (4.5-11.0)
[2025-03-14 04:42] LABS: ALANINE AMINOTRANSFERASE 30 U/L (12-78); ALBUMIN 3.6 G/DL (3.4-5.0); ALBUMIN/GLOBULIN RATIO 0.9 (1.1-1.5); ALKALINE PHOSPHATASE 98 IU/L (46-116); ANION GAP 8 (8-16); ASPARTATE AMINO TRANSFERASE 21 U/L (10-37); BILIRUBIN,TOTAL 0.3 MG/DL (0.1-1.0); BLOOD UREA NITROGEN 14 MG/DL (7-18); BUN/CREATININE RATIO 16.7 (10.0-20.0); CHLORIDE 104 MMOL/L (99-107); CREATININE 0.84 MG/DL (0.60-1.10); GLUCOSE 105 MG/DL (70-104); MAGNESIUM 2.2 MG/DL (1.5-2.4); POTASSIUM 4.1 MMOL/L (3.5-5.1); SODIUM 140 MMOL/L (135-145); TOTAL CARBON DIOXIDE 27.9 MMOL/L (24-32); TOTAL PROTEIN 7.6 G/DL (6.4-8.2); eCRCL 97 ML/MIN; eGFR > 90 ML/MIN
--- NOTE | 2025-03-14 10:05 | PROGRESS NOTE ---
Progress Note Dictate Providers to CC ~ Subjective Subjective: He states that he is doing fairly well. I did talk to him about continuing IV antibiotics, and he would prefer to do this at home rather than rehab. Objective Objective: Pleasant thin young male who looks stable Lungs are dominantly clear to auscultation bilaterally with some bronchial breath sounds at right upper lung field Heart regular rate and rhythm Abdomen soft and nontender Extremities no edema Lab Results: 03/14/2540503/14/25405 Problem\Assessment\Plan Additional Plan 1. 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 Pulmonary tuberculosis with severe cavitary disease that was treated with 12 months of therapy that completed December 2022 3. Pulmonary MAC of unclear significance that was treated with at least 12 months of therapy 4. Possible bacterial infection with involvement of right upper lobe 5. Malnutrition - this was a significant problem when he was being treated for tuberculosis, and he appears to be holding steady DC vancomycin Continue Zosyn - plan to continue in the outpatient setting Midline placement He does not need isolation Oral intake encouraged LUIS E HUITRON MD March 14, 2025 10:05
[2025-03-14] MEDS: VANCOMYCIN LEVEL IV ONE (10:30)
[2025-03-14] MEDS: ipratropium/albuterol 3ml nebule NEB PRN (13:21)
--- NOTE | 2025-03-14 16:45 | PROGRESS NOTE- Residence ---
Progress Note - Resident Providers to CC Resident Creating Document: ALVIN VENEGAS CC: ONIEL MCRAE MD ~ Antibiotic Timeout Antibiotic Ordered?: Yes Subjective Patient was seen at bedside today. Patient is doing well, cough has improved significantly. He is eating well Objective Vital Signs Date Time Temp Pulse Resp B/P (MAP) Pulse Ox O2 Delivery O2 Flow Rate FiO2 03/14/25 13:29 85 18 Room Air 0.0 03/14/25 13:22 96 21 03/14/25 11:00 97.9 128/69 (88) Result Diagram: 03/14/25 0406 03/14/25 0406 General: Cachectic, awake, alert oriented to place, time, and person HEENT: Some pallor present, no icterus, moist mucous membranes Neck: No masses and tenderness Resp: Unlabored. Lungs clear to auscultation bilaterally. Heart: Regular Rate and rhythm, normal S1 and S2 without murmur, rub or gallop Abdomen: Soft and non tender no organomegaly, no guarding and rigidity, bowel sounds present Neuro: No weakness in the upper and lower limb muscles, power of the muscles 5/5 bilateral upper and lower muscles, knee reflex present bilaterally. Cranial nerves intact Extremities: Significant muscle wasting. No cyanosis,clubbing or edema Skin: Warm and Dry. No lesions Assessment Assessment 24-year-old male patient came to the hospital with chief complaint of exacerbating cough and shortness of breath. Admitted for evaluation and management of community acquired pneumonia in the setting of history of pulmonary Tuberculosis and MAC Plan Plan Shortness of breath, resolved Sepsis 2/2 community acquired pneumonia, bacterial History of pulmonary MAC History of pulmonary tuberculosis The patient came to the hospital with chief complaint of cough and shortness of breaths The patient completed treatment for tuberculosis two years ago COVID-19: Negative. Chest x-ray: Normal cardiac silhouette. Extensive parenchymal hazy densities in the upper lung zones bilaterally, consistent with multifocal infiltrates. Confluent area of opacification in the right upper lobe with small lucencies may represent an abscess. Dr. Ball was consulted who knows this patient well and feels that the patient was appropriately treated for tuberculosis. He thinks like disease a bacterial pneumonia recommends treated for bacterial pneumonia no need for TB precautions. Blood cultures are negative Sputum culture shows Gram-positive cocci in pairs. Pending AFB CT chest shows Lung emphysema/COPD with scattered areas of consolidation, predominantly in the upper lobes could be multifocal pneumonia. Underlying nodule can not be excluded. DC vancomycin per Dr. Ball Continue Zosyn, day 4 Culturelle [id number] mmu b.i.d. DuoNeb q.4h prn Continue recommendations per Dr. Ball Patient will be discharged with a midline to continue IV antibiotics on an outpatient basis. Although, patient is homeless in we will likely need placement for this. Possible discharge tomorrow Normocytic normochromic anemia likely secondary to anemia of chronic disease Hemoglobin is stable Iron studies consistent with anemia of chronic disease Continue monitoring H&H Moderate protein-calorie malnutrition BMI 18.1 Nutrition following Code status: Full code DVT prophylaxis: SCDs Analgesia/sedation: None Line/tube: PIV GI prophylaxis: Protonix Nutrition: Regular diet PT: Ordered Prognosis: Guarded Disposition: Continue care in surgical unit. Continue medical management. Continue recommendations per ID. Anticipated discharge tomorrow Alvin Kim MD Internal Medicine Resident PGY-1 Date of Service: March 14, 2025 Billing Provider: ONIEL MCRAE MD Common Visit Codes: [id number] INP/OBS CARE(HIGH) ALVIN VENEGAS March 14, 2025 16:45 ONIEL MCRAE MD March 22, 2025 14:45
[2025-03-15] VITALS (9 sets, daily range): BP systolic 100–117; BP diastolic 64–69; PULSE 63–96; RESP 14–20; TEMP 98–98.7; O2SAT 95–97
[2025-03-15 04:36] LABS: BASOPHILS # (AUTO) 0.1 X10'3 (0-0.2); HEMOGLOBIN 13.1 g/dl (14.0-17.9); LYMPHOCYTES # (AUTO) 1.1 X10'3 (1.1-4.8); MONOCYTES # (AUTO) 0.6 X10'3 (0-0.9); WHITE BLOOD COUNT 7.9 X10'3 (4.5-11.0)
[2025-03-15 04:39] LABS: BASOPHILS % (AUTO) 0.8 % (0-1); EOSINOPHILS % (AUTO) 12.9 % (0-6); LYMPHOCYTES % (AUTO) 14.2 % (21-51); MEAN CORPUSCULAR HEMOGLOBIN 25.8 PG (27.0-31.0); MEAN CORPUSCULAR HGB CONC 32.7 g/dL (33.0-36.5); MEAN CORPUSCULAR VOLUME 78.9 FL (78-98); MEAN PLATELET VOLUME 8.5 FL (7.4-10.4); MONOCYTES % (AUTO) 7.4 % (2-12); NEUTROPHILS # (AUTO) 5.1 X10'3 (1.8-7.7); NEUTROPHILS % (AUTO) 64.7 % (42-75); PLATELET COUNT 357 X10'3 (140-440); RED BLOOD COUNT 5.08 X10'6 (4.70-6.10)
[2025-03-15 05:02] LABS: ALANINE AMINOTRANSFERASE 33 U/L (12-78); ALBUMIN 3.8 G/DL (3.4-5.0); ALBUMIN/GLOBULIN RATIO 0.8 (1.1-1.5); ALKALINE PHOSPHATASE 102 IU/L (46-116); ANION GAP 8 (8-16); ASPARTATE AMINO TRANSFERASE 21 U/L (10-37); BILIRUBIN,TOTAL 0.2 MG/DL (0.1-1.0); BLOOD UREA NITROGEN 19 MG/DL (7-18); BUN/CREATININE RATIO 24.7 (10.0-20.0); CALCIUM 9.1 MG/DL (8.5-10.1); CHLORIDE 101 MMOL/L (99-107); CREATININE 0.77 MG/DL (0.60-1.10); GLUCOSE 87 MG/DL (70-104); SODIUM 137 MMOL/L (135-145); TOTAL PROTEIN 8.3 G/DL (6.4-8.2); eCRCL 106 ML/MIN; eGFR > 90 ML/MIN
--- NOTE | 2025-03-15 11:28 | PROGRESS NOTE ---
Progress Note Dictate Providers to CC ~ Subjective Subjective: He is currently having his midline catheter placed. He now tells me that he would rather go to rehab instead of doing IV antibiotics at home. Objective Objective: Pleasant thin young male who looks stable Lungs are dominantly clear to auscultation bilaterally with some bronchial breath sounds at right upper lung field Heart regular rate and rhythm Abdomen soft and nontender Extremities no edema Lab Results: 03/15/25 04103/15/25409 Problem\Assessment\Plan Additional Plan 1. 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 Pulmonary tuberculosis with severe cavitary disease that was treated with 12 months of therapy that completed December 2022 3. Pulmonary MAC of unclear significance that was treated with at least 12 months of therapy 4. Possible bacterial infection with involvement of right upper lobe 5. Malnutrition - this was a significant problem when he was being treated for tuberculosis, and he appears to be holding steady Continue Zosyn Plan for two more weeks at SNF He does not need isolation Oral intake encouraged He can follow up with me as an outpatient LUIS E HUITRON MD March 15, 2025 11:28
--- NOTE | 2025-03-15 15:20 | PROGRESS NOTE- Residence ---
Progress Note - Resident Providers to CC Resident Creating Document: ALVIN VENEGAS CC: ONIEL MCRAE MD ~ Antibiotic Timeout Antibiotic Ordered?: Yes Subjective Patient was seen at bedside today. No overnight events. Continues to do well Objective Vital Signs Date Time Temp Pulse Resp B/P (MAP) Pulse Ox O2 Delivery O2 Flow Rate FiO2 03/15/25 11:38 18 95 Room Air 03/15/25 10:00 98.0 63 117/65 (82) 03/15/25 08:35 0 21 Result Diagram: 03/15/2540903/15/25409 General: Cachectic, awake, alert oriented to place, time, and person HEENT: Some pallor present, no icterus, moist mucous membranes Neck: No masses and tenderness Resp: Unlabored. Lungs clear to auscultation bilaterally. Heart: Regular Rate and rhythm, normal S1 and S2 without murmur, rub or gallop Abdomen: Soft and non tender no organomegaly, no guarding and rigidity, bowel sounds present Neuro: No weakness in the upper and lower limb muscles, power of the muscles 5/5 bilateral upper and lower muscles, knee reflex present bilaterally. Cranial nerves intact Extremities: Significant muscle wasting. No cyanosis,clubbing or edema Skin: Warm and Dry. No lesions Assessment Assessment 24-year-old male patient came to the hospital with chief complaint of exacerbating cough and shortness of breath. Admitted for evaluation and management of community acquired pneumonia in the setting of history of pulmonary Tuberculosis and MAC Plan Plan Shortness of breath, resolved Sepsis 2/2 community acquired pneumonia, bacterial History of pulmonary MAC History of pulmonary tuberculosis The patient came to the hospital with chief complaint of cough and shortness of breaths The patient completed treatment for tuberculosis two years ago COVID-19: Negative. Chest x-ray: Normal cardiac silhouette. Extensive parenchymal hazy densities in the upper lung zones bilaterally, consistent with multifocal infiltrates. Confluent area of opacification in the right upper lobe with small lucencies may represent an abscess. Dr. Ball was consulted who knows this patient well and feels that the patient was appropriately treated for tuberculosis. He thinks like disease a bacterial pneumonia recommends treated for bacterial pneumonia no need for TB precautions. Blood cultures are negative Sputum culture shows Gram-positive cocci in pairs. Pending AFB CT chest shows Lung emphysema/COPD with scattered areas of consolidation, predominantly in the upper lobes could be multifocal pneumonia. Underlying nodule can not be excluded. DC vancomycin per Dr. Ball Continue Zosyn, day 5. Patient is to complete 2 more weeks Culturelle [id number] mmu b.i.d. DuoNeb q.4h prn Continue recommendations per Dr. Ball Initial plan was to discharge with a midline to continue IV antibiotics on an outpatient basis. Blood in view of ideal living situation. Patient will be transferred to SNF or LTAC Normocytic normochromic anemia likely secondary to anemia of chronic disease Hemoglobin is stable Iron studies consistent with anemia of chronic disease Continue monitoring H&H Moderate protein-calorie malnutrition BMI 18.1 Nutrition following Code status: Full code DVT prophylaxis: SCDs Analgesia/sedation: None Line/tube: PIV GI prophylaxis: Protonix Nutrition: Regular diet PT: Ordered Prognosis: Guarded Disposition: Continue care in surgical unit. Continue medical management. Continue recommendations per ID. Awaiting placement Alvin Kim MD Internal Medicine Resident PGY-1 Date of Service: March 15, 2025 Billing Provider: ONIEL MCRAE MD Common Visit Codes: [id number] INP/OBS CARE(HIGH) ALVIN VENEGAS March 15, 2025 15:20 ONIEL MCRAE MD March 22, 2025 14:45
[2025-03-16] VITALS (7 sets, daily range): BP systolic 101–110; BP diastolic 55–65; PULSE 61–101; RESP 12–20; TEMP 97.6–98.1; O2SAT 94–100
--- NOTE | 2025-03-16 16:03 | PROGRESS NOTE- Residence ---
Progress Note - Resident Providers to CC Resident Creating Document: ALVIN VENEGAS CC: ONIEL MCRAE MD ~ Antibiotic Timeout Antibiotic Ordered?: Yes Subjective Patient was seen at bedside today. Doing well. No overnight events. Awaiting placement Objective Vital Signs Date Time Temp Pulse Resp B/P (MAP) Pulse Ox O2 Delivery O2 Flow Rate FiO2 03/16/25 10:00 98.1 83 12 110/62 (78) 100 Room Air 03/15/25 20:00 0.0 21 Result Diagram: 03/15/250 03/15/250 General: Cachectic, awake, alert oriented to place, time, and person HEENT: Some pallor present, no icterus, moist mucous membranes Neck: No masses and tenderness Resp: Unlabored. Lungs clear to auscultation bilaterally. Heart: Regular Rate and rhythm, normal S1 and S2 without murmur, rub or gallop Abdomen: Soft and non tender no organomegaly, no guarding and rigidity, bowel sounds present Neuro: No weakness in the upper and lower limb muscles, power of the muscles 5/5 bilateral upper and lower muscles, knee reflex present bilaterally. Cranial nerves intact Extremities: Significant muscle wasting. No cyanosis,clubbing or edema Skin: Warm and Dry. No lesions Assessment Assessment 24-year-old male patient came to the hospital with chief complaint of exacerbating cough and shortness of breath. Admitted for evaluation and management of community acquired pneumonia in the setting of history of pulmonary Tuberculosis and MAC Plan Plan Shortness of breath, resolved Sepsis 2/2 community acquired pneumonia, bacterial History of pulmonary MAC History of pulmonary tuberculosis The patient came to the hospital with chief complaint of cough and shortness of breaths The patient completed treatment for tuberculosis two years ago COVID-19: Negative. Chest x-ray: Normal cardiac silhouette. Extensive parenchymal hazy densities in the upper lung zones bilaterally, consistent with multifocal infiltrates. Confluent area of opacification in the right upper lobe with small lucencies may represent an abscess. Dr. Ball was consulted who knows this patient well and feels that the patient was appropriately treated for tuberculosis. He thinks like disease a bacterial pneumonia recommends treated for bacterial pneumonia no need for TB precautions. Blood cultures are negative Sputum culture shows Gram-positive cocci in pairs. Pending AFB CT chest shows Lung emphysema/COPD with scattered areas of consolidation, predominantly in the upper lobes could be multifocal pneumonia. Underlying nodule can not be excluded. DC vancomycin per Dr. Ball Continue Zosyn, day 6. Patient is to complete 2 more weeks Culturelle [id number] mmu b.i.d. DuoNeb q.4h prn Continue recommendations per Dr. Ball Initial plan was to discharge with a midline to continue IV antibiotics on an outpatient basis. But in view of ideal living situation. Patient will be transferred to SNF or LTAC Normocytic normochromic anemia likely secondary to anemia of chronic disease Hemoglobin is stable Iron studies consistent with anemia of chronic disease Continue monitoring H&H Moderate protein-calorie malnutrition BMI 18.1 Nutrition following Code status: Full code DVT prophylaxis: SCDs Analgesia/sedation: None Line/tube: PIV GI prophylaxis: Protonix Nutrition: Regular diet PT: Ordered Prognosis: Guarded Disposition: Continue care in surgical unit. Continue medical management. Continue recommendations per ID. Awaiting placement Alvin Kim MD Internal Medicine Resident PGY-1 Date of Service: March 16, 2025 Billing Provider: ONIEL MCRAE MD Common Visit Codes: [id number] INP/OBS CARE(MOD) ALVIN VENEGAS March 16, 2025 16:02 ONIEL MCRAE MD March 22, 2025 14:45
[2025-03-17] VITALS (7 sets, daily range): BP systolic 96–115; BP diastolic 56–68; PULSE 63–91; RESP 16–22; TEMP 97.5–98; O2SAT 96–97
[2025-03-17 08:50] LABS: BASOPHILS % (AUTO) 0.5 % (0-1); HEMOGLOBIN 12.2 g/dl (14.0-17.9); LYMPHOCYTES # (AUTO) 0.9 X10'3 (1.1-4.8); LYMPHOCYTES % (AUTO) 11.3 % (21-51); MEAN CORPUSCULAR HEMOGLOBIN 25.3 PG (27.0-31.0); MEAN CORPUSCULAR VOLUME 78.9 FL (78-98); MEAN PLATELET VOLUME 8.3 FL (7.4-10.4); MONOCYTES # (AUTO) 0.6 X10'3 (0-0.9); MONOCYTES % (AUTO) 7.4 % (2-12); NEUTROPHILS # (AUTO) 5.6 X10'3 (1.8-7.7); NEUTROPHILS % (AUTO) 68.8 % (42-75); PLATELET COUNT 320 X10'3 (140-440); RED BLOOD COUNT 4.81 X10'6 (4.70-6.10); RED CELL DISTRIBUTION WIDTH 14.3 % (11.5-14.5); WHITE BLOOD COUNT 8.1 X10'3 (4.5-11.0)
[2025-03-17 08:57] LABS: ALBUMIN 3.6 G/DL (3.4-5.0); ANION GAP 8 (8-16); BLOOD UREA NITROGEN 17 MG/DL (7-18); BUN/CREATININE RATIO 20.2 (10.0-20.0); CALCIUM 8.9 MG/DL (8.5-10.1); CHLORIDE 103 MMOL/L (99-107); CREATININE 0.84 MG/DL (0.60-1.10); GLUCOSE 100 MG/DL (70-104); POTASSIUM 3.8 MMOL/L (3.5-5.1); SODIUM 139 MMOL/L (135-145); TOTAL CARBON DIOXIDE 28.2 MMOL/L (24-32); eCRCL 97 ML/MIN; eGFR > 90 ML/MIN
--- NOTE | 2025-03-17 12:09 | PROGRESS NOTE- Residence ---
Progress Note - Resident Providers to CC Resident Creating Document: ALVIN VENEGAS CC: ONIEL MCRAE MD ~ Antibiotic Timeout Antibiotic Ordered?: Yes Subjective Patient was seen at bedside today. No overnight events. He has no significant complaints today. Awaiting placement Objective Vital Signs Date Time Temp Pulse Resp B/P (MAP) Pulse Ox O2 Delivery O2 Flow Rate FiO2 03/17/25 07:57 16 Room Air 0.0 03/17/25 06:09 97.5 63 96/64 (75) 96 03/16/25 19:57 21 Result Diagram: 03/17/25 0803/17/25825 General: Cachectic, awake, alert oriented to place, time, and person HEENT: Some pallor present, no icterus, moist mucous membranes Neck: No masses and tenderness Resp: Unlabored. Lungs clear to auscultation bilaterally. Heart: Regular Rate and rhythm, normal S1 and S2 without murmur, rub or gallop Abdomen: Soft and non tender no organomegaly, no guarding and rigidity, bowel sounds present Neuro: No weakness in the upper and lower limb muscles, power of the muscles 5/5 bilateral upper and lower muscles, knee reflex present bilaterally. Cranial nerves intact Extremities: Significant muscle wasting. No cyanosis,clubbing or edema Skin: Warm and Dry. No lesions Assessment Assessment 24-year-old male patient came to the hospital with chief complaint of exacerbating cough and shortness of breath. Admitted for evaluation and management of community acquired pneumonia in the setting of history of pulmonary Tuberculosis and MAC. Currently awaiting placement for long-term antibiotics Plan Plan Shortness of breath, resolved Sepsis 2/2 community acquired pneumonia, bacterial History of pulmonary MAC History of pulmonary tuberculosis The patient came to the hospital with chief complaint of cough and shortness of breaths The patient completed treatment for tuberculosis two years ago COVID-19: Negative. Chest x-ray: Normal cardiac silhouette. Extensive parenchymal hazy densities in the upper lung zones bilaterally, consistent with multifocal infiltrates. Confluent area of opacification in the right upper lobe with small lucencies may represent an abscess. Dr. Ball was consulted who knows this patient well and feels that the patient was appropriately treated for tuberculosis. He thinks like disease a bacterial pneumonia recommends treated for bacterial pneumonia no need for TB precautions. Blood cultures are negative Sputum culture shows Gram-positive cocci in pairs. Pending AFB CT chest shows Lung emphysema/COPD with scattered areas of consolidation, predominantly in the upper lobes could be multifocal pneumonia. Underlying nodule can not be excluded. DC vancomycin per Dr. Ball Continue Zosyn, day 7. Patient is to complete 2 more weeks Culturelle [id number] mmu b.i.d. DuoNeb q.4h prn Continue recommendations per Dr. Ball Initial plan was to discharge with a midline to continue IV antibiotics at home. But in view of not ideal living situation. Patient will be transferred to SNF or LTAC Normocytic normochromic anemia likely secondary to anemia of chronic disease Hemoglobin is stable Iron studies consistent with anemia of chronic disease Continue monitoring H&H Moderate protein-calorie malnutrition BMI 18.1 Nutrition following Code status: Full code DVT prophylaxis: SCDs Analgesia/sedation: None Line/tube: PIV GI prophylaxis: Protonix Nutrition: Regular diet PT: Ordered Prognosis: Guarded Disposition: Continue care in surgical unit. Continue medical management. Continue recommendations per ID. Awaiting placement Alvin Kim MD Internal Medicine Resident PGY-1 Date of Service: March 17, 2025 Billing Provider: ONIEL MCRAE MD Common Visit Codes: [id number] INP/OBS CARE(HIGH) ALVIN VENEGAS March 17, 2025 12:09 ONIEL MCRAE MD March 22, 2025 14:45
[2025-03-18] VITALS (9 sets, daily range): BP systolic 97–106; BP diastolic 54–73; PULSE 74–100; RESP 14–20; TEMP 97.1–98.5; O2SAT 83–97
--- NOTE | 2025-03-18 17:12 | PROGRESS NOTE- Residence ---
Progress Note - Resident Providers to CC Resident Creating Document: MARIKA DURAN RES CC: ONIEL MCRAE MD ~ Antibiotic Timeout Antibiotic Ordered?: Yes Subjective Patient was seen at bedside today. No overnight events. He has no significant complaints today. Awaiting placement Objective Vital Signs Date Time Temp Pulse Resp B/P (MAP) Pulse Ox O2 Delivery O2 Flow Rate FiO2 03/18/25 10:00 97.1 75 16 106/73 (84) 94 Room Air 03/18/25 08:36 0 21 Result Diagram: 03/17/25 0803/17/25825 General: Malnourished, Alert, awake, oriented, not in acute distress HEENT: PERRLA, no icterus, pallor, lymphadenopathy, carotid bruit Respiratory system: Bilateral vesicular breath sounds heard, no adventitious breath sounds CVS: S1-S2 heard, no murmurs/rubs/gallop GI: Soft, nontender, no organomegaly, no guarding/rigidity, bowel sounds present Neuro: No focal neurological deficits present Extremities: No edema cyanosis clubbing/deformities Skin: Warm and dry Assessment Assessment 24-year-old male patient came to the hospital with chief complaint of exacerbating cough and shortness of breath. Admitted for evaluation and management of community acquired pneumonia in the setting of history of pulmonary Tuberculosis and MAC. Currently awaiting placement for long-term antibiotics Plan Plan Shortness of breath, resolved Sepsis 2/2 community acquired pneumonia, bacterial History of pulmonary MAC History of pulmonary tuberculosis The patient completed treatment for tuberculosis two years ago COVID-19: Negative. Dr. Ball was consulted who knows this patient well and feels that the patient was appropriately treated for tuberculosis. He thinks like disease a bacterial pneumonia recommends treated for bacterial pneumonia no need for TB precautions. Blood cultures are negative Sputum culture shows Gram-positive cocci in pairs. Pending AFB Follow up with nodule finding on CT chest as outpatient DC vancomycin per Dr. Ball. Continue Zosyn, day 8. Patient is to complete 2 more weeks Culturelle [id number] mmu b.i.d. DuoNeb q.4h prn Continue recommendations per Dr. Ball Initial plan was to discharge with a midline to continue IV antibiotics at home. But in view of not ideal living situation. Patient will be transferred to SNF or LTAC Normocytic normochromic anemia likely secondary to anemia of chronic disease Hemoglobin is stable Iron studies consistent with anemia of chronic disease Continue monitoring H&H Moderate protein-calorie malnutrition BMI 18.1 Nutrition following Code status: Full code DVT prophylaxis: SCDs Nutrition: Regular diet Prognosis: Guarded Disposition: Continue care in surgical unit. Continue medical management. Continue recommendations per ID. Awaiting placement Marika Duran MD Internal Medicine, PGY 1 Date of Service: March 18, 2025 Billing Provider: ONIEL MCRAE MD Common Visit Codes: [id number] INP/OBS CARE(MOD) MARIKA DURAN, RES March 18, 2025 17:12 ONIEL MCRAE MD March 22, 2025 14:45
[2025-03-19] VITALS (8 sets, daily range): BP systolic 101–115; BP diastolic 61–74; PULSE 78–91; RESP 13–18; TEMP 97.6–98.8; O2SAT 93–98
[2025-03-19 06:45] LABS: HEMATOCRIT 37.4 % (42.0-52.0); HEMOGLOBIN 12.4 g/dl (14.0-17.9); MEAN CORPUSCULAR HEMOGLOBIN 26.2 PG (27.0-31.0); MEAN CORPUSCULAR HGB CONC 33.2 g/dL (33.0-36.5); MEAN PLATELET VOLUME 7.8 FL (7.4-10.4); PLATELET COUNT 351 X10'3 (140-440); RED BLOOD COUNT 4.73 X10'6 (4.70-6.10); RED CELL DISTRIBUTION WIDTH 14.2 % (11.5-14.5); WHITE BLOOD COUNT 8.6 X10'3 (4.5-11.0)
--- NOTE | 2025-03-19 10:16 | PROGRESS NOTE ---
Progress Note Dictate Providers to CC ~ Subjective Subjective: He has been stable over the weekend. I do not believe placement has been found yet. No shortness a breath or fever. Objective Objective: Pleasant thin young male who looks stable Lungs are dominantly clear to auscultation bilaterally with some bronchial breath sounds at right upper lung field Heart regular rate and rhythm Abdomen soft and nontender Extremities no edema Lab Results: 03/19/25 0628 03/17/25 0826 Problem\Assessment\Plan Additional Plan 1. 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 Pulmonary tuberculosis with severe cavitary disease that was treated with 12 months of therapy that completed December 2022 3. Pulmonary MAC of unclear significance that was treated with at least 12 months of therapy 4. Possible bacterial infection with involvement of right upper lobe 5. Malnutrition - this was a significant problem when he was being treated for tuberculosis, and he appears to be holding steady Continue Zosyn (9 days completed) Plan for two more weeks at [facility] if placement can be found Finish a minimum of 2 weeks here if placement is difficult He does not need isolation Oral intake encouraged He can follow up with me as an outpatient LUIS E HUITRON MD March 19, 2025 10:16
--- NOTE | 2025-03-19 18:38 | DISCHARGE SUMMARY-Residence ---
Discharge Summary Providers to CC Resident Creating Document: MARIKA DURAN, ELSY CC: ONIEL MCRAE MD ~ Discharge Summary Assessment 24-year-old male patient came to the hospital with chief complaint of exacerbating cough and shortness of breath. Admitted for evaluation and management of community acquired pneumonia in the setting of history of pulmonary Tuberculosis and MAC. Currently awaiting placement for long-term antibiotics Admission Diagnosis: Shortness of breath Hospital Course DATE OF ADMISSION: 03/10/25 DATE OF DISCHARGE: 03/21/25 Discharge Diagnosis\Comment: Acute respiratory distress Sepsis secondary to community-acquired pneumonia, bacterial History of pulmonary MAC History of pulmonary TB Normocytic normochromic anemia likely secondary to anemia of chronic disease Moderate protein energy malnutrition Operations\Procedures: None Consultants: Dr. Ball (ID) Complications: None Condition on DC: Stable for transfer Discharge Summary: A 19-year-old male presented to the ED with chief complaint of exacerbation cough and shortness of breaths. On the background patient had been treated for pulmonary tuberculosis in 2022 when he completed his entire course for about a year. Patient was following Dr. Ball as outpatient. On further evaluation patient was found to have community-acquired pneumonia that was treated with adequate antibiotics, steroids, Culturelle. Patient was further evaluated for any reactivation of TB which came out to be negative. Patient was managed as per ID (Dr. Ball). Patient was found to have normochromic normocytic anemia with iron studies indicating anemia of chronic disease and moderate protein energy malnutrition that was managed with protein shakes and suggested for protein diet. Patient was initially supposed to be discharged on the 19 of March, but was held due to failure of authorization with his insurance. As we received authorization later, patient is being discharged today. Patient is hemodynamically stable at the time of discharge. Physical examination at discharge: General: Malnourished, Alert, awake, oriented, not in acute distress HEENT: PERRLA, no icterus, pallor, lymphadenopathy, carotid bruit Respiratory system: Bilateral vesicular breath sounds heard, no adventitious breath sounds CVS: S1-S2 heard, no murmurs/rubs/gallop GI: Soft, nontender, no organomegaly, no guarding/rigidity, bowel sounds present Neuro: No focal neurological deficits present Extremities: No edema cyanosis clubbing/deformities Skin: Warm and dry Labs at discharge: WBC: 8.6, H/H: 12.4/37.4, platelet count: 351 Sodium: 138, potassium: 3.6, BUN: 15, creatinine: 0.94 Imaging: Chest CT: Lung emphysema/COPD with scattered areas of consolidation, predominantly in the upper lobes could be multifocal pneumonia. Underlying nodule can not be excluded. Repeat CT in 6 months is recommended. Chest x-ray:Extensive parenchymal hazy densities in the upper lung zones bilaterally, consistent with multifocal infiltrates. Confluent area of opacification in the right upper lobe with small lucencies may represent an abscess. Discharge medications and recommendations have been faxed to the facility *Problems/Diagnosis: (1) Respiratory distress Status: Acute (2) Pneumonia Status: Acute Total Time Spent on D/C: > 30 Minutes Date of Service: March 21, 2025 Billing Provider: ONIEL MCRAE MD Common Visit Codes: [id number]/[id number] DISCH DAY >30min Problem Qualifiers (1) Pneumonia: Pneumonia type: due to unspecified organism Laterality: right Lung location: middle lobe of lung Qualified Codes: J18.9 - Pneumonia, unspecified organism MARIKA DURAN, RES March 19, 2025 18:38 ONIEL MCRAE MD March 22, 2025 14:47
[2025-03-20] VITALS (10 sets, daily range): BP systolic 93–120; BP diastolic 59–72; PULSE 60–89; RESP 14–20; TEMP 97.7–98.8; O2SAT 93–97
--- NOTE | 2025-03-20 17:44 | PROGRESS NOTE- Residence ---
Progress Note - Resident Providers to CC Resident Creating Document: MARIKA DURAN RES CC: ONIEL MCRAE MD ~ Antibiotic Timeout Antibiotic Ordered?: Yes Subjective Patient was seen at bedside today. No overnight events. He has no significant complaints today. Awaiting authorization Objective Vital Signs Date Time Temp Pulse Resp B/P (MAP) Pulse Ox O2 Delivery O2 Flow Rate FiO2 03/20/25 11:00 98.0 81 16 104/59 (74) 96 Room Air 03/20/25 08:32 0 21 Result Diagram: 03/19/25 0628 03/17/25 0826 General: Malnourished, Alert, awake, oriented, not in acute distress HEENT: PERRLA, no icterus, pallor, lymphadenopathy, carotid bruit Respiratory system: Bilateral vesicular breath sounds heard, no adventitious breath sounds CVS: S1-S2 heard, no murmurs/rubs/gallop GI: Soft, nontender, no organomegaly, no guarding/rigidity, bowel sounds present Neuro: No focal neurological deficits present Extremities: No edema cyanosis clubbing/deformities Skin: Warm and dry Assessment Assessment 24-year-old male patient came to the hospital with chief complaint of exacerbating cough and shortness of breath. Admitted for evaluation and management of community acquired pneumonia in the setting of history of pulmonary Tuberculosis and MAC. Currently awaiting placement for long-term antibiotics Plan Plan Shortness of breath, resolved Sepsis 2/2 community acquired pneumonia, bacterial History of pulmonary MAC History of pulmonary tuberculosis The patient completed treatment for tuberculosis two years ago COVID-19: Negative. Dr. Ball was consulted who knows this patient well and feels that the patient was appropriately treated for tuberculosis. He thinks like disease a bacterial pneumonia recommends treated for bacterial pneumonia no need for TB precautions. Blood cultures are negative Sputum culture shows Gram-positive cocci in pairs. Pending AFB Follow up with nodule finding on CT chest as outpatient DC vancomycin per Dr. Ball. Continue Zosyn, day 10. Patient is to complete 2 more weeks Culturelle [id number] mmu b.i.d. DuoNeb q.4h prn Continue recommendations per Dr. Ball Initial plan was to discharge with a midline to continue IV antibiotics at home. But in view of not ideal living situation. Patient will be transferred to SNF or LTAC Normocytic normochromic anemia likely secondary to anemia of chronic disease Hemoglobin is stable Iron studies consistent with anemia of chronic disease Continue monitoring H&H Moderate protein-calorie malnutrition BMI 18.1 Nutrition following Code status: Full code DVT prophylaxis: SCDs Nutrition: Regular diet Prognosis: Guarded Disposition: Continue care in surgical unit. Continue medical management. Continue recommendations per ID. Awaiting authorization Marika Duran MD Internal Medicine, PGY 1 Date of Service: March 20, 2025 Billing Provider: ONIEL MCRAE MD Common Visit Codes: [id number] INP/OBS CARE(MOD) MARIKA DURAN, RES March 20, 2025 17:44 ONIEL MCRAE MD March 22, 2025 14:46
--- NOTE | 2025-03-20 18:00 | PROGRESS NOTE- Residence ---
Progress Note - Resident Providers to CC Resident Creating Document: MARIKA DURAN RES CC: ONIEL MCRAE MD ~ Antibiotic Timeout Antibiotic Ordered?: Yes Subjective Late note for 03/19/2025. Patient was actually supposed to be discharged but was not due to pending authorization from insurance. Patient was seen at bedside today. No overnight events. He has no significant complaints today. Awaiting authorization Objective Vital Signs Date Time Temp Pulse Resp B/P (MAP) Pulse Ox O2 Delivery O2 Flow Rate FiO2 03/20/25 11:00 98.0 81 16 104/59 (74) 96 Room Air 03/20/25 08:32 0 21 Result Diagram: 03/19/25 0628 03/17/25 0826 General: Malnourished, Alert, awake, oriented, not in acute distress HEENT: PERRLA, no icterus, pallor, lymphadenopathy, carotid bruit Respiratory system: Bilateral vesicular breath sounds heard, no adventitious breath sounds CVS: S1-S2 heard, no murmurs/rubs/gallop GI: Soft, nontender, no organomegaly, no guarding/rigidity, bowel sounds present Neuro: No focal neurological deficits present Extremities: No edema cyanosis clubbing/deformities Skin: Warm and dry Assessment Assessment 24-year-old male patient came to the hospital with chief complaint of exacerbating cough and shortness of breath. Admitted for evaluation and management of community acquired pneumonia in the setting of history of pulmonary Tuberculosis and MAC. Currently awaiting placement for long-term antibiotics Plan Plan Shortness of breath, resolved Sepsis 2/2 community acquired pneumonia, bacterial History of pulmonary MAC History of pulmonary tuberculosis The patient completed treatment for tuberculosis two years ago COVID-19: Negative. Dr. Ball was consulted who knows this patient well and feels that the patient was appropriately treated for tuberculosis. He thinks like disease a bacterial pneumonia recommends treated for bacterial pneumonia no need for TB precautions. Blood cultures are negative Sputum culture shows Gram-positive cocci in pairs. Pending AFB Follow up with nodule finding on CT chest as outpatient DC vancomycin per Dr. Ball. Continue Zosyn, day 10. Patient is to complete 2 more weeks Culturelle [id number] mmu b.i.d. DuoNeb q.4h prn Continue recommendations per Dr. Ball Initial plan was to discharge with a midline to continue IV antibiotics at home. But in view of not ideal living situation. Patient will be transferred to SNF or LTAC Normocytic normochromic anemia likely secondary to anemia of chronic disease Hemoglobin is stable Iron studies consistent with anemia of chronic disease Continue monitoring H&H Moderate protein-calorie malnutrition BMI 18.1 Nutrition following Code status: Full code DVT prophylaxis: SCDs Nutrition: Regular diet Prognosis: Guarded Disposition: Continue care in surgical unit. Continue medical management. Continue recommendations per ID. Awaiting authorization Marika Duran MD Internal Medicine, PGY 1 Date of Service: March 19, 2025 Billing Provider: ONIEL MCRAE MD Common Visit Codes: [id number] INP/OBS CARE(MOD) MARIKA DURAN, RES March 20, 2025 18:00 ONIEL MCRAE MD March 22, 2025 14:46
[2025-03-20] MEDS ORDERED: piperacillin/tazo 3.375gm/50ml 50 ML IV SCH (19:56)
[2025-03-20] MEDS: piperacillin/tazo 3.375gm/50ml 50 ML IV SCH (20:30)
[2025-03-21 03:49] VITALS: O2SAT 97
[2025-03-21 06:00] VITALS: BP 110/67; PULSE 77; RESP 12; TEMP 98.4; O2SAT 97
[2025-03-21 08:00] VITALS: RESP 17; O2SAT 95
[2025-03-21 09:49] LABS: BASOPHILS % (AUTO) 0.5 % (0-1); EOSINOPHILS # (AUTO) 0.6 X10'3 (0-0.9); EOSINOPHILS % (AUTO) 7.8 % (0-6); HEMOGLOBIN 12.4 g/dl (14.0-17.9); LYMPHOCYTES # (AUTO) 0.9 X10'3 (1.1-4.8); LYMPHOCYTES % (AUTO) 11.2 % (21-51); MEAN CORPUSCULAR HEMOGLOBIN 25.6 PG (27.0-31.0); MEAN CORPUSCULAR HGB CONC 32.6 g/dL (33.0-36.5); MEAN CORPUSCULAR VOLUME 78.4 FL (78-98); MEAN PLATELET VOLUME 8.2 FL (7.4-10.4); MONOCYTES # (AUTO) 0.5 X10'3 (0-0.9); MONOCYTES % (AUTO) 6.7 % (2-12); NEUTROPHILS # (AUTO) 5.8 X10'3 (1.8-7.7); NEUTROPHILS % (AUTO) 73.8 % (42-75); PLATELET COUNT 330 X10'3 (140-440); RED BLOOD COUNT 4.84 X10'6 (4.70-6.10); RED CELL DISTRIBUTION WIDTH 14.4 % (11.5-14.5); WHITE BLOOD COUNT 7.8 X10'3 (4.5-11.0)
--- NOTE | 2025-03-21 09:53 | PROGRESS NOTE ---
Progress Note Dictate Providers to CC ~ Subjective Subjective: He states that he is doing fairly well. Breathing is stable with no fever. He is willing to go to rehab out of the area if needed. Objective Objective: Pleasant thin young male who looks stable Lungs are dominantly clear to auscultation bilaterally with some bronchial breath sounds at right upper lung field Heart regular rate and rhythm Abdomen soft and nontender Extremities no edema Lab Results: 03/19/25 0628 03/17/25 0826 Problem\Assessment\Plan Additional Plan 1. 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 Pulmonary tuberculosis with severe cavitary disease that was treated with 12 months of therapy that completed December 2022 3. Pulmonary MAC of unclear significance that was treated with at least 12 months of therapy 4. Possible bacterial infection with involvement of right upper lobe 5. Malnutrition - this was a significant problem when he was being treated for tuberculosis, and he appears to be holding steady Continue Zosyn day 12 Plan for two more weeks at SNF if placement can be found Finish a minimum of 2 weeks here if placement is difficult Will reassess on Wednesday if still here Repeat CXR He does not need isolation Oral intake encouraged He can follow up with me as an outpatient LUIS E HUITRON MD March 21, 2025 09:53
[2025-03-21 09:58] LABS: ALBUMIN 3.5 G/DL (3.4-5.0); ANION GAP 9 (8-16); BLOOD UREA NITROGEN 15 MG/DL (7-18); CALCIUM 8.8 MG/DL (8.5-10.1); CHLORIDE 101 MMOL/L (99-107); CREATININE 0.94 MG/DL (0.60-1.10); GLUCOSE 85 MG/DL (70-104); POTASSIUM 3.6 MMOL/L (3.5-5.1); SODIUM 138 MMOL/L (135-145); TOTAL CARBON DIOXIDE 28.1 MMOL/L (24-32); eCRCL 86 ML/MIN; eGFR > 90 ML/MIN
[2025-03-21 10:00] VITALS: BP 110/72; PULSE 85; RESP 17; TEMP 97.1; O2SAT 96
[2025-03-21 10:43] VITALS: PULSE 81; RESP 20; O2SAT 99
[2025-03-21 10:49] VITALS: PULSE 77; RESP 14
== END 2025-03-21 14:22 | DRG 720 ==
LOC: ER 22:05 → UNDOADMIN 03-10 04:53 → ED HOLD 03-10 04:53 → SUR 3N 03-10 12:43
PROVIDERS: ADMIT Internal Medicine Sleep Medicine; ATTEND Family Medicine
PROC: 05HF33Z Insertion of Infusion Device into Left Cephalic Vein, Percutaneous Approach (ICD-10-PCS; principal; 2025-03-15)
PROC: B54NZZA Ultrasonography of Left Upper Extremity Veins, Guidance (ICD-10-PCS; 2025-03-15)
DX: A41.9 Sepsis, unspecified organism (principal); R65.21 Severe sepsis with septic shock; E44.0 Moderate protein-calorie malnutrition; Z20.822 Contact with and (suspected) exposure to COVID-19; J44.0 Chronic obstructive pulmonary disease with (acute) lower respiratory infection; J15.9 Unspecified bacterial pneumonia; D64.9 Anemia, unspecified; Z68.1 Body mass index [BMI] 19.9 or less, adult; Z86.11 Personal history of tuberculosis
CPT/HCPCS: 36410; 36415; 36600; 71045; 71250; 76942; 80048; 80053; 80061; 80202; 81003; 82728; 82803; 83036; 83540; 83550; 83605; 83735; 84132; 84145; 84484; 85018; 85025; 85027; 85651; 86140; 87040; 87070; 87081; 87811; 93005; 94640; 94760; 96361; 96365; 96367; 99291; A4615; C1751; G0378; J2543; J3370; J7030; J7040; J7120

== ENCOUNTER 2025-03-25 13:06 | Emergency (ER) | payer MEDICAID ==
[~2025-03-25] VITALS: Ht 152.4 cm; Wt 46.8 kg
[~2025-03-25 13:06] MED LIST changes: -ACET-1074 PO; -ALBU0.63 INH; -BENZ1LOZ74 PO; -CLOT30CR24 TOP; -DOCU1POW; -DULO60CA65 PO; -FAMO20TA8 PO; -FERR-39 PO; -GUAI120L55 PO; -GUAI5SYR5; -HEPA100D36 SQ; -LORA-269 PO; -MEGE40TA5 PO; -METO50TA16; -MOME13HF11 INH; -MULT-1085 PO; +NO HOME MEDS; -ONDA-243 PO; -POLY17PO59 PO; -PYRI-3 PO; -SERT-433 PO; -SIME80TA15 PO; -SODI100035 PO; -ZOLP5TAB2 PO; -[UNRECOGNIZED DRUG - CODE]; -[UNRECOGNIZED DRUG - CODE] PO
--- NOTE | 2025-03-25 13:37 | RADIOLOGY REPORT ---
DI CHEST,SINGLE VIEW, HISTORY: CONFIRM PICC PLACEMENT FROM OUTSIDE FACILITY COMPARISON: DI CHEST,SINGLE VIEW on DOS: 03/09/25, CHEST,SINGLE VIEW on DOS: 07/11/21 DI CHEST,SINGLE VIEW on DOS: 03/09/25, CHEST,SINGLE VIEW on DOS: 07/11/21 TECHNICAL DATA: 1 view of the chest was obtained. FINDINGS: Lines and tubes: There is a left axillary midline. Cardiomediastinal silhouette: normal Pulmonary vasculature: normal Lung expansion: Bilateral upper lobe consolidation could be pneumonia. Lung airspace: normal Lung interstitium: normal Pleura: normal Pneumothorax: no Bones: Unremarkable Other: no IMPRESSION: Bilateral upper lobe consolidation could be pneumonia. There is a left axillary midline.
--- NOTE | 2025-03-25 14:13 | Physician Documentation ---
History of Present Illness ~ Chief Complaint: Catheter Problem Stated Complaint: PICC LINE COMPLICATION Time Seen by MD: 13:57 Primary Medical Doctor: none HPI 24-year-old male presents to the ED with a complaint Pmid line on the right side which was had some drainage at his facility. He is currently being treated for pneumonia. No complaints of increased pain swelling or shortness of breath.. Day of Onset: March 25, 2025 Medication Reconciliation Allergies: Coded Allergies: No Known Allergies (Unverified , 03/09/25) Miscellaneous Medications Home Med List (No Home Medications), (Reported) Past Medical History Past Medical History: No Pertinent History Past Surgical History: no surgical history Alcohol Use: None Drug Use: none Lives with: Other Lives In: Other Occupation: unemployed Review of Systems All Other Systems at this time: Reviewed and Negative ROS As stated above in the HPI, otherwise all systems are reviewed and negative. Physical Exam Vital Signs: Temperature: 98.5, Source: Oral, Heart Rate: 76, Respiratory Rate: 16, BP: 100/68, Pulse Oximetry: 98, Weight: 46.800 Oxygen Flow Rate: 0 Physical Exam General: Alert, no apparent distress. Respiratory: Lungs clear, no respiratory distress. Chest: No accessory muscle use. Cardiovascular: Regular rate and rhythm, no murmurs. Gastrointestinal: Soft, nontender, nondistended. Bowels sounds present. Extremities: Normal range of motion, no deformity. After midline placement does not appear infiltrated has no swelling erythema. Was eeasy to flush both catheters. Patient denied any pain during flushing Neurologic: Oriented x4. Psychiatric: Normal mood and affect. Skin: Normal color, warm and dry. No edema, no ecchymosis. Progress Results/Orders Results/Orders Orders - GEORGE NEWMAN CADD OPERATOR Reassess Pt For Discharge (03/25/25 14:32) Dressing Change (03/25/25 14:32) Vital Signs 03/25/25 13:12 Temp 98.5 Pulse 76 Resp 16 B/P (MAP) 100/68 Pulse Ox 98 O2 Flow Rate 0 Medical Decision Making Findings I did not see any signs of complications there were some minor drainage from the site. Had them nursing staff redressed the site. The mid line flushed without difficulty without pain no notable swelling erythema or purulent discharge. The radiologist made no remarks regarding patency of the midline Patient does have the ongoing concerns with pneumonia. However he has been treated for this via antibiotics at his facility. Requested a reassessment by nursing staff. They advised me that when they flushed the IV site that there was notable drainage from the site. At this point I think a peripheral line would be ideal and send the patient back to the facility for IV antibiotics treatment over the weekend until they can obtain a PICC line nurse . Departure Disposition: HOME / SELF CARE / HOMELESS Impression: Primary Impression: Pneumonia Condition: Improved Discharge Instructions: PICC Removal, Adult, Care After Referrals: NO PRIMARY CARE PROVIDER (PCP) Signature Scribe Signature: f Attestation: The note accurately reflects work and decisions made by me.George Dawn NP 03/25/25 14:31 GEORGE NEWMAN NP March 25, 2025 14:13
[2025-03-25 17:53] VITALS: BP 113/73; PULSE 61; RESP 16; O2SAT 97
[2025-03-25 18:07] VITALS: TEMP 98.5
== END 2025-03-25 18:08 | disposition home or self-care (01) ==
LOC: ER 13:06
DX: J18.9 Pneumonia, unspecified organism (principal)
CPT/HCPCS: 71045; 99283; A6258

== ENCOUNTER 2025-10-04 01:42 | Emergency (ER) | payer MEDICAID ==
[~2025-10-04] VITALS: Ht 177.8 cm; Wt 65.0 kg
--- NOTE | 2025-10-04 02:27 | RADIOLOGY REPORT ---
CHEST RADIOGRAPH Indication: cough green sputum hx TB/PNA Technique: Frontal and lateral view of the chest was obtained Comparison: DI CHEST,SINGLE VIEW on DOS: 03/25/25, CT CT CHEST on DOS: 03/10/25, DI CHEST,SINGLE VIEW on DOS: 03/09/25, CHEST,SINGLE VIEW on DOS: 07/11/21, CT CHEST on DOS: 07/11/21 FINDINGS: Lines and Tubes: None Lungs: Consolidative appearing right upper lobe pulmonary infiltrate and mild patchy left upper lung zone pulmonary airspace disease. Pleura: No effusion. No pneumothorax. Cardiomediastinal contours: Unremarkable Bones: Unremarkable IMPRESSION: Consolidative appearing right upper lobe pulmonary infiltrate and mild patchy left upper lung zone pulmonary airspace disease. Findings are consistent with an infectious process such as pneumonia, however, active tuberculosis is not excluded depending upon the clinical presentation.
[2025-10-04 02:33] LABS: MEAN PLATELET VOLUME 8.6 FL (7.4-10.4); RED CELL DISTRIBUTION WIDTH 12.4 % (11.5-14.5)
--- NOTE | 2025-10-04 02:52 | Physician Documentation ---
History of Present Illness ~ Chief Complaint: Cough Stated Complaint: DIFF BREATHING Time Seen by MD: 02:50 Primary Medical Doctor: none Mode of Arrival: EMS HPI Patient presents to the emergency room with productive cough. Patient has history of tuberculosis. Upon review of previous medical records it seems Dr. Ball infectious Disease who knows this patient well and feels he was appropriately treated for tuberculosis. He states he has been having a cough over the past few days and that has concerned he may be developing pneumonia. He is diagnosed with pneumonia in the not too distant past seen here. No fevers. Given his history felt he needed to be evaluated. Medication Reconciliation Allergies: Coded Allergies: No Known Allergies (Unverified , 03/09/25) Miscellaneous Medications Home Med List (No Home Medications), (Reported) Past Medical History Past Medical History: No Pertinent History Past Surgical History: no surgical history Alcohol Use: None Drug Use: none Lives with: Other Lives In: Other Occupation: unemployed Review of Systems ROS All review of systems negative except as per HPI Physical Exam Vital Signs: Temperature: 98.0, Source: Oral, Heart Rate: 106, Respiratory Rate: 29, BP: 118/82, Pulse Oximetry: 97, Weight: 65.000 Oxygen Flow Rate: 0 Physical Exam General: Patient is awake, alert, oriented x4 in no acute distress. Skinny Head: Normocephalic and atraumatic. Eyes: Conjunctival normal. EOMI. PERRL. ENT: Mucous membranes moist. Neck: Supple, trachea is midline. Chest: Clear to auscultation bilaterally without rales, rhonchi, or wheezes. There is no accessory muscle use or retractions. Cardiac: Tachycardic and regular without murmurs, gallops, or rubs. Extremities: Normal strength. Normal range of motion. No deformities or edema. No calf tenderness to palpation Progress Results/Orders Results/Orders Orders - SHON GUERRERO MD Chest,Two Views (10/04/25 02:05) Culture Blood (10/04/25 01:53) Saline Lock (10/04/25 01:53) Oxygen (10/04/25 01:53) Electrocardiogram (10/04/25 ) Completed Orders - SOHN GUERRERO MD Chest,Two Views (10/04/25 02:05) Cbc/Diff (10/04/25 01:53) BMP (10/04/25 01:53) PBNP (10/04/25 01:53) Lacticsepsis (10/04/25 01:53) Vital Signs 10/04/25 10/04/25 01:47 02:37 Temp 98.0 Pulse 106 Resp 29 B/P (MAP) 118/82 Pulse Ox 97 O2 Flow Rate 0 Laboratory Tests Test 10/04/25 02:15 White Blood Count 7.7 Red Blood Count 5.41 Hemoglobin 14.1 Hematocrit 43.2 Mean Corpuscular Volume 79.9 Mean Corpuscular Hemoglobin 26.1 L Mean Corpuscular Hemoglobin Concent 32.6 L Red Cell Distribution Width 12.4 Platelet Count 316 Mean Platelet Volume 8.6 Neutrophils (%) (Auto) 71.3 Lymphocytes (%) (Auto) 12.0 L Monocytes (%) (Auto) 4.6 Eosinophils (%) (Auto) 11.3 H Basophils (%) (Auto) 0.8 Neutrophils # (Auto) 5.5 Lymphocytes # (Auto) 0.9 L Monocytes # (Auto) 0.4 Eosinophils # (Auto) 0.9 Basophils # (Auto) 0.1 CBC Comment Sodium Level 143 Potassium Level 3.9 Chloride Level 104 Carbon Dioxide Level 29.6 Anion Gap 9 Blood Urea Nitrogen 12 Creatinine 1.09 Estimated GFR/1.73 m2 82 BUN/Creatinine Ratio 11.0 Glucose Level 136 H Lactic Acid Level 2.6 H Calcium Level 8.9 Pro-B-Type Natriuretic Peptide 67 Albumin 4.4 Chemistry Comments EKG/XRAY/CT/US/VASC/MRI EKG : Additional Comment EKG interpreted by myself shows time of 0301, rate 94, sinus rhythm, normal axis, no ST-T changes Chest X-Ray : Additional Comments Exam: CHEST,TWO VIEWS CHEST RADIOGRAPH Indication: cough green sputum hx TB/PNA Technique: Frontal and lateral view of the chest was obtained Comparison: DI CHEST,SINGLE VIEW on DOS: 03/25/25, CT CT CHEST on DOS: 03/10/25, DI CHEST,SINGLE VIEW on DOS: 03/09/25, CHEST,SINGLE VIEW on DOS: 07/11/21, CT CHEST on DOS: 07/11/21 FINDINGS: Lines and Tubes: None Lungs: Consolidative appearing right upper lobe pulmonary infiltrate and mild patchy left upper lung zone pulmonary airspace disease. Pleura: No effusion. No pneumothorax. Cardiomediastinal contours: Unremarkable Bones: Unremarkable IMPRESSION: Consolidative appearing right upper lobe pulmonary infiltrate and mild patchy left upper lung zone pulmonary airspace disease. Findings are consistent with an infectious process such as pneumonia, however, active tuberculosis is not excluded depending upon the clinical presentation. Medical Decision Making Additional information obtaine: old records Findings Patient presents to the emergency room with chief complaint of cough as per HPI. Differentials include but are not limited to pneumonia, tuberculosis, viral syndrome, CHF, reflux therefore emergent labs and imaging indicated. Chest x- ray is very abnormal given his history of tuberculosis. That has able to compare this to his previous chest x-ray and I do not see any significant difference. Patient's white blood cell count is reassuring and he had not feel patient is septic. I do not feel he needs a CT scan. As patient has high risk we will start antibiotics. ER precautions discussed Differential Dx:Considerations: Include: Allergic rhinitis, Influenza, Otitis media, Peritonsillar abscess, Pharyngitis-Diphtheria, Pharyngitis-Streptoccal, Pharyngitis-Viral, Pneumonia, Pnuemonitis, Sinusitis, URI, Other Departure Disposition: 01 HOME / SELF CARE / HOMELESS Impression: Primary Impression: Acute respiratory infection Condition: Stable Discharge Instructions: Upper Respiratory Infection, Adult Referrals: NO PRIMARY CARE PROVIDER (PCP) Prescriptions Ondansetron 8mg ODT (Ondansetron Odt) 8 Mg Tab.rapdis 1 TAB PO Q6H for nausea/vomiting for 3 Days, #12 TAB 0 Refills Prov: SHON GUERRERO MD 10/04/25 Levofloxacin (Levofloxacin) 500 Mg Tablet 1 TAB PO DAILY for 10 Days, #10 TAB Prov: SHON GUERRERO MD 10/04/25 Signature Scribe Signature: No scribe Attestation: The note accurately reflects work and decisions made by me.Shon Guerrero MD 10/04/25 03:12 SHON GUERRERO MD Oct 04, 2025 02:52
[2025-10-04 02:56] LABS: CREATININE 1.09 MG/DL (0.60-1.10); PRO BRAIN NATRIURETIC PEPTIDE 67 PG/ML (0-125); TOTAL CARBON DIOXIDE 29.6 MMOL/L (24-32); eCRCL 95 ML/MIN; eGFR 82 ML/MIN
[2025-10-04] MEDS ORDERED: LEVO-65 PO (03:11)
[2025-10-04] MEDS ORDERED: ONDA-245 PO (03:11)
[2025-10-04 03:16] VITALS: BP 101/66; PULSE 95; RESP 16; TEMP 98; O2SAT 97
[2025-10-04] MEDS: ondansetron 4mg rapidly disintigrating tab PO ONE (03:19)
[2025-10-04] MEDS: levoFLOXACIN 750MG TABLET PO ONE (03:20)
--- NOTE | 2025-10-04 06:41 | ELECTROCARDIOGRAPH REPORT ---
[facility] Test Date: 2025-10-04 Test Time: 03:01:07 Pat Name: YONI GUTIERREZ Department: [facility]- Patient ID: [id number] Room: Gender: M Butcher Helper: NICK : 2000 Requested By: MEGA GUERRERO Order Number: [id number] Reading MD: Dr. JANINA Petty Measurements Intervals Griffin Rate: 94 P: 67 NC: 122 QRS: 78 QRSD: 96 T: 40 QT: 329 QTc: 412 Interpretive Statements Sinus rhythm Right atrial enlargement Borderline ST elevation, lateral leads Electronically Signed On 10-05-2025 16:52:[address] JANINA Petty Please click the below link to view image of tracing.
== END 2025-10-04 03:42 | disposition home or self-care (01) ==
LOC: ER 01:42
DX: J22 Unspecified acute lower respiratory infection (principal); I49.8 Other specified cardiac arrhythmias; R91.8 Other nonspecific abnormal finding of lung field; Z56.0 Unemployment, unspecified
CPT/HCPCS: 36415; 71046; 80048; 83605; 83880; 85025; 87040; 93005; 99285